=== PATIENT | male | born 1955 | race Caucasian/White ===

== ENCOUNTER 2020-04-09 14:29 | Inpatient (IN) | payer BC ==
[~2020-04-09] VITALS: Ht 190.5 cm; Wt 106.5 kg
[2020-04-09] MEDS ORDERED: FAMOTIDINE 20MG/2ML IV (PEPCID) IVP ONE (15:45)
[2020-04-09] MEDS ORDERED: PANTOPRAZOLE 40 MG (PROTONIX) VIAL IV ONE (15:45)
[2020-04-09 16:03] LABS: BASOPHILS # (AUTO) 0.1 10^3/uL (0.0-0.1); BASOPHILS % (AUTO) 1 % (0-10); EOSINOPHILS # (AUTO) 0.1 10^3/uL (0.0-0.3); EOSINOPHILS % (AUTO) 2 % (0-10); HEMATOCRIT 43 % (40-54); HEMOGLOBIN 14.7 g/dL (13.3-17.7); LYMPHOCYTES # (AUTO) 1.1 10^3/uL (1.0-4.0); LYMPHOCYTES % (AUTO) 18 % (12-44); MEAN CORPUSCULAR HEMOGLOBIN 32 pg (25-34); MEAN CORPUSCULAR HGB CONC 35 g/dL (32-36); MEAN CORPUSCULAR VOLUME 92 fL (80-99); MEAN PLATELET VOLUME 10.7 fL (9.0-12.2); MONOCYTES # (AUTO) 0.5 10^3/uL (0.0-1.0); MONOCYTES % (AUTO) 8 % (0-12); NEUTROPHILS # (AUTO) 4.3 10^3/uL (1.8-7.8); NEUTROPHILS % (AUTO) 71 % (42-75); PLATELET COUNT 240 10^3/uL (130-400); WHITE BLOOD COUNT 6.1 10^3/uL (4.3-11.0)
[2020-04-09 16:09] LABS: ALBUMIN 4.5 GM/DL (3.2-4.5); PROTHROMBIN TIME PATIENT 13.3 SEC (12.2-14.7)
[2020-04-09 16:10] LABS: CHLORIDE 107 MMOL/L (98-107); POTASSIUM 3.6 MMOL/L (3.6-5.0); SODIUM 142 MMOL/L (135-145)
[2020-04-09 16:11] LABS: CALCIUM 9.3 MG/DL (8.5-10.1)
[2020-04-09 16:12] LABS: GLUCOSE 88 MG/DL (70-105); TOTAL PROTEIN 6.9 GM/DL (6.4-8.2)
[2020-04-09 16:13] LABS: CARBON DIOXIDE 23 MMOL/L (21-32)
[2020-04-09 16:14] LABS: BILIRUBIN,TOTAL 0.9 MG/DL (0.1-1.0)
[2020-04-09 16:15] LABS: ALKALINE PHOSPHATASE 43 U/L (40-136)
[2020-04-09 16:16] LABS: CREATININE SERUM 0.83 MG/DL (0.60-1.30); GFR ESTIMATED > 60
[2020-04-09 16:17] LABS: BUN/CREATININE RATIO 19
[2020-04-09 16:18] LABS: ALANINE AMINOTRANSFERASE 34 U/L (0-55)
--- NOTE | 2020-04-09 16:46 | ED General ---
General Chief Complaint: Oral/Throat Problems Stated Complaint: BLEEDING FROM THROAT Nursing Triage Note: PT PRESENTS TO ED WITH COMPLAINTS OF SPITTING UP BLOOD STARTING APROX 2 HOURS AGO. PT REPORTS STARTED HAVING DIFFICULTY SWALLOWING X 1 WEEK AGO AND WAS TREATED TWO WEEKS AGO FOR SINUS AND EAR INFECTION. Nursing Sepsis Screen: No Definite Risk Source of Information: Patient Exam Limitations: No Limitations History of Present Illness Date Seen by Provider: Apr 09, 2020 Time Seen by Provider: 15:38 Initial Comments This 64-year-old gentleman presents to the emergency room with complaints of spitting up blood today. He noticed difficulty swallowing starting about 2 weeks ago. 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 He denies any pain. He notes that pills and capsules have frequently been getting stuck in his esophagus over the past couple weeks. He has not taking any blood thinning medications. Allergies and Home Medications Allergies Coded Allergies: almond (Verified Allergy, Unknown, 04/09/20) amoxicillin (Verified Allergy, Unknown, 04/09/20) tree nut (Verified Allergy, Unknown, 04/09/20) Home Medications Aspirin/Acetaminophen/Caffeine 1 Each Tablet, 2 EACH PO Q6-8HR PRN for Headache, (Reported) Cetirizine HCl 10 Mg Tablet, 10 MG PO HS PRN for ALLERGY SYMPTOMS, (Reported) Diphenhydramine HCl 25 Mg Capsule, 25-50 MG PO Q6H PRN for ALLERGY SYMPTOMS, (Reported) Ibuprofen 200 Mg Tablet, 400 MG PO Q8H PRN for PAIN-MILD (1-4), (Reported) Levothyroxine Sodium 25 Mcg Tablet, 25 MCG PO DAILY, (Reported) Lisinopril/Hydrochlorothiazide 1 Each Tablet, 1 EA PO DAILY, (Reported) Loratadine 10 Mg Tablet, 10 MG PO DAILY PRN for ALLERGY SYMPTOMS, (Reported) Multivitamin 1 Each Tablet, 1 EACH PO DAILY, (Reported) Naproxen Sodium 220 Mg Capsule, 220 MG PO Q8H PRN for PAIN-MILD (1-4), (Reported) Patient Home Medication List Home Medication List Reviewed: Yes Review of Systems Review of Systems Constitutional: no symptoms reported EENTM: see HPI Respiratory: no symptoms reported Cardiovascular: other (Hypertensive) Gastrointestinal: see HPI Genitourinary: no symptoms reported Musculoskeletal: no symptoms reported Skin: no symptoms reported Psychiatric/Neurological: No Symptoms Reported Hematologic/Lymphatic: No Symptoms Reported Immunological/Allergic: no symptoms reported Past Oevaoni-Qbkmwm-Frlgtb Hx Past Med/Social Hx: Reviewed Nursing Past Med/Soc Hx Patient Social History Alcohol Use: Denies Use Recreational Drug Use: No Smoking Status: Never a Smoker Recent Foreign Travel: No Contact w/Someone Who Travel: No Recent Infectious Disease Expo: No Recent Hopitalizations: No Physical Abuse: No Sexual Abuse: No Mistreated: No Fear: No Past Medical History Surgeries: Yes (stromal tumor removed from stomach 2016, dilation of esophageal strictures) Gallbladder, Tonsillectomy Respiratory: No Cardiac: Yes Hypertension Neurological: No Genitourinary: No Gastrointestinal: Yes (Esophageal strictures with dilation x2) Musculoskeletal: No Endocrine: Yes Hypothyroidsim HEENT: No Cancer: No Psychosocial: No Physical Exam Vital Signs Vital Signs - First Documented 04/09/20 04/09/20 04/10/20 15:21 17:44 10:30 Temp 36.6 Pulse 67 Resp 18 B/P (MAP) 187/99 (128) Pulse Ox 96 O2 Delivery Room Air O2 Flow Rate 8 Capillary Refill : Less Than 3 Seconds Height, Weight, BMI Height: '" Weight: lbs. oz. kg; 28.00 BMI Method: General Appearance: No Apparent Distress, WD/WN HEENT: PERRL/EOMI, TMs Normal, Normal ENT Inspection, Pharynx Normal, Other (No evidence of blood in the posterior pharynx) Neck: Normal Inspection, Non Tender, Other (No masses or lymphadenopathy noted) Respiratory: Lungs Clear, Normal Breath Sounds, No Accessory Muscle Use, No Respiratory Distress Cardiovascular: Regular Rate, Rhythm, No Edema, No Murmur Gastrointestinal: Normal Bowel Sounds, Non Tender, Soft Extremity: Normal Inspection, No Pedal Edema Neurologic/Psychiatric: Alert, Oriented x3, No Motor/Sensory Deficits, Normal Mood/Affect, employment program representative II-XII Norm as Tested Skin: Normal Color, Warm/Dry Progress/Results/Core Measures Suspected Sepsis Recent Fever Within 48 Hours: No Infection Criteria Present: None New/Unexplained Altered Menta: No Sepsis Screen: No Definite Risk SIRS Temperature: Pulse: 67 Respiratory Rate: 18 Laboratory Tests 04/09/20 15:40: White Blood Count 6.1 04/10/20 05:58: White Blood Count 4.4 Blood Pressure 187 /99 Mean: 128 Laboratory Tests 04/09/20 15:40: Creatinine 0.83, INR Comment 1.0, Platelet Count 240, Total Bilirubin 0.9 04/10/20 05:58: Creatinine 0.82, Platelet Count 207, Total Bilirubin 1.1H Results/Orders Lab Results Laboratory Tests Test 04/09/20 15:40 04/09/20 21:15 04/10/20 05:58 Range/Units White Blood Count 6.1 4.4 4.3-11.0 10^3/uL Red Blood Count 4.64 4.16 L 4.30-5.52 10^6/uL Hemoglobin 14.7 13.2 L 13.3-17.7 g/dL Hematocrit 43 39 L 40-54 % Mean Corpuscular Volume 92 93 80-99 fL Mean Corpuscular Hemoglobin 32 32 25-34 pg Mean Corpuscular Hemoglobin Concent 35 34 32-36 g/dL Red Cell Distribution Width 12.4 12.3 10.0-14.5 % Platelet Count 240 207 130-400 10^3/uL Mean Platelet Volume 10.7 10.7 9.0-12.2 fL Immature Granulocyte % (Auto) 1 0 % Neutrophils (%) (Auto) 71 58 42-75 % Lymphocytes (%) (Auto) 18 26 12-44 % Monocytes (%) (Auto) 8 12 0-12 % Eosinophils (%) (Auto) 2 3 0-10 % Basophils (%) (Auto) 1 1 0-10 % Neutrophils # (Auto) 4.3 2.5 1.8-7.8 10^3/uL Lymphocytes # (Auto) 1.1 1.2 1.0-4.0 10^3/uL Monocytes # (Auto) 0.5 0.5 0.0-1.0 10^3/uL Eosinophils # (Auto) 0.1 0.2 0.0-0.3 10^3/uL Basophils # (Auto) 0.1 0.1 0.0-0.1 10^3/uL Immature Granulocyte # (Auto) 0.0 0.0 0.0-0.1 10^3/uL Prothrombin Time 13.3 12.2-14.7 SEC INR Comment 1.0 0.8-1.4 Activated Partial Thromboplast Time 29 24-35 SEC Sodium Level 142 140 135-145 MMOL/L Potassium Level 3.6 3.7 3.6-5.0 MMOL/L Chloride Level 107 107 98-107 MMOL/L Carbon Dioxide Level 23 22 21-32 MMOL/L Anion Gap 12 11 5-14 MMOL/L Blood Urea Nitrogen 16 12 7-18 MG/DL Creatinine 0.83 0.82 0.60-1.30 MG/DL Estimat Glomerular Filtration Rate > 60 > 60 BUN/Creatinine Ratio 19 15 Glucose Level 88 93 70-105 MG/DL Calcium Level 9.3 8.0 L 8.5-10.1 MG/DL Corrected Calcium 8.9 8.2 L 8.5-10.1 MG/DL Total Bilirubin 0.9 1.1 H 0.1-1.0 MG/DL Aspartate Amino Transf (AST/SGOT) 30 26 5-34 U/L Alanine Aminotransferase (ALT/SGPT) 34 29 0-55 U/L Alkaline Phosphatase 43 35 L 40-136 U/L Total Protein 6.9 5.5 L 6.4-8.2 GM/DL Albumin 4.5 3.8 3.2-4.5 GM/DL Coronavirus (COVID-19)(PCR) Negative Negative Micro Results Microbiology 04/09/20 MRSA Screen - Final, Complete MRSA not isolated My Orders Orders - LA CHAIREZ MD Cbc With Automated Diff (04/09/20 15:38) Comprehensive Metabolic Panel (04/09/20 15:38) Protime With Inr (04/09/20 15:38) Partial Thromboplastin Time (04/09/20 15:38) Ed Iv/Invasive Line Start (04/09/20 15:38) Famotidine Injection (Pepcid Injection) (04/09/20 15:45) Pantoprazole Injection (Protonix Injecti (04/09/20 15:45) Type And Screen (04/09/20 15:38) Medications Given in ED Vital Signs/I&O Capillary Refill : Less Than 3 Seconds Blood Pressure Mean: 128 Progress Note : Progress Note This gentleman continued to spit up of blood about in decreasing quantities throughout his ER visit. He received Pepcid and Protonix 80 mg by IV route. He was notably hypertensive when he was initially assessed but his blood pressure trended downward to an acceptable level without intervention. Dr. Thomas was consulted and intends to perform endoscopy in the morning. Departure Communication (Admissions) Time/Spoke to Admitting Phy: 16:40 Dr. Muir Time/Spoke to Consulting Phy: 16:30 Dr. Thomas Impression Primary Impression: Upper GI bleed Additional Impression: History of stomach cancer Disposition: ADMITTED INPATIENT Condition: Stable Admissions Decision to Admit Reason: Admit from ER (General) Decision to Admit/Date: Apr 09, 2020 Time/Decision to Admit Time: 16:30 Departure-Patient Inst. Referrals: JE DEL RIO MD (PCP/Family) Primary Care Physician LA CHAIREZ MD Apr 09, 2020 16:46
--- NOTE | 2020-04-09 17:40 | NUR ---
DIONISOI NASH admitted to room 415-1, with an admitting diagnosis of GI bleed, on 04/09/20 from ED via wheelchair, accompanied by staff.DIONISIO NASH introduced to surroundings, call light, bed controls, phone, TV, temperature control, lights, meal times, smoking policy, visitor policy, side rail policy, bathrooms and showers. Patient Rights given to patient in the handbook. DIONISIO NASH verbalizes understanding that [facility] is not responsible for the loss or damage to any personal effects or valuables that are kept in the patients posession during their hospitalization. DIONISIO NASH verbalizes understanding of Interdisciplinary Patient Education. Patient and/or family were informed about the Rapid Response Team and its purpose.
[2020-04-09 17:44] VITALS: BP 202/95
[2020-04-09] MEDS ORDERED: LACTATED RINGERS 1,000 ML IV ONE (18:00)
[2020-04-09] MEDS ORDERED: ONDANSETRON 4 MG/2 ML (SDV) Z0FRAN IVP PRN (18:15)
[2020-04-09] MEDS: LACTATED RINGERS 1,000 ML IV SCH (18:19)
[2020-04-09 18:26] VITALS: BP 191/90
--- NOTE | 2020-04-09 18:48 | NUR ---
Notified MD of elevated blood pressure since admission. patient is currently 191/90 heart rate 62. Patient stated he takes lisinopril and HCTZ but does not remember dosages. patient stated he took medication this AM and is feeling asymptomatic at this time. MD instructed this RN to only monitor blood pressure for now as IV BP medications can cause more harm at times. if patient becomes symptomatic such as pain/ headache notify MD.
--- NOTE | 2020-04-09 19:34 | Consultation - Surgery ---
History of Present Illness History of Present Illness Patient Consulted On(dane/time) 04/09/20 19:28 Time Seen by Provider: 19:04 History of Present Illness Surgery asked to consult regarding hematemesis/hemoptysis and worsening dysphagia. HPI per ED: PT PRESENTS TO ED WITH COMPLAINTS OF SPITTING UP BLOOD STARTING APROX 2 HOURS AGO. PT REPORTS STARTED HAVING DIFFICULTY SWALLOWING X 1 WEEK AGO AND WAS TREATED TWO WEEKS AGO FOR SINUS AND EAR INFECTION. When I spoke to pt he states that he has hx of GI Stromal Tumor, removed by wedge resection laparoscopically in 2016. He states he was told at that time that he could go on a 5 year cycle for EGD's. He states that over the past couple of weeks he has had worsening dysphagia; "dry foods are the worst, but also gel-caps because they are sticky". He has avoided other foods and is trending toward a liquid only diet. He states surgery was not near [facility]; but, he has had Esophageal dilation 2 or 3 times before. He had all of this done in [place] and has been in [facility] 2017. He states he did not need any chemo or radiation after the tumor removal. Pt denies abdominal pain and no SOB. Allergies and Home Medications Allergies Coded Allergies: almond (Verified Allergy, Unknown, 04/09/20) amoxicillin (Verified Allergy, Unknown, 04/09/20) tree nut (Verified Allergy, Unknown, 04/09/20) Patient Home Medication List Home Medication List Reviewed: Yes Past Rqcztmk-Ytdqfi-Wcfkib Hx Patient Social History Alcohol Use: Denies Use Recreational Drug Use: No Smoking Status: Never a Smoker Recent Foreign Travel: No Contact w/Someone Who Travel: No Recent Infectious Disease Expo: No Recent Hopitalizations: No Surgeries History of Surgeries: Yes (stromal tumor removed from stomach, ) Surgeries: Gallbladder, Tonsillectomy Respiratory History of Respiratory Disorde: No Cardiovascular History of Cardiac Disorders: Yes Cardiac Disorders: Hypertension Neurological History of Neurological Disord: No Genitourinary History of Genitourinary Disor: No Gastrointestinal History of Gastrointestinal Di: Yes (history of esophagus stretched x 2) Musculoskeletal History of Musculoskeletal Dis: No Endocrine History of Endocrine Disorders: Yes Endocrine Disorders: Hypothyroidsim HEENT History of HEENT Disorders: No Cancer History of Cancer: No Psychosocial History of Psychiatric Problem: No Family Medical History Significant Family History: Heart Disease (Father and both G'fathers), Diabetes (both G'fathers) Review of Systems-General Constitutional: No chills, No diaphoresis, No malaise, No weakness EENTM: hoarseness, throat pain, throat swelling; No blurred vision, No double vision, No mouth swelling, No epistaxis Respiratory: cough; No dyspnea on exertion, No short of breath Cardiovascular: No chest pain, No edema, No palpitations Gastrointestinal: No abdominal pain; dysphagia, hematemesis, loss of appetite; No nausea; vomiting Genitourinary: No dysuria, No frequency, No hematuria Skin: No change in color, No change in hair/nails Psychiatric/Neurological: Denies Anxiety, Denies Depressed, Denies Seizure, Denies Tremors Physical Exam-General Problems Physical Exam Vital Signs Vital Signs - First Documented 04/09/20 04/09/20 15:21 17:44 Temp 36.6 Pulse 67 Resp 18 B/P (MAP) 187/99 (128) Pulse Ox 96 O2 Delivery Room Air Capillary Refill : Less Than 3 Seconds General Appearance: WD/WN, no apparent distress Eyes: Bilateral Eye PERRL, Bilateral Eye EOMI HEENT: pharynx normal; No scleral icterus (R), No scleral icterus (L) Neck: non-tender, full range of motion, supple Respiratory: chest non-tender, lungs clear, normal breath sounds, no r espiratory distress, no accessory muscle use Cardiovascular: regular rate, rhythm, no murmur Gastrointestinal: non tender, soft, no organomegaly, no pulsatile mass Back: no CVA tenderness, no vertebral tenderness Extremities: no pedal edema, no calf tenderness, normal capillary refill Neurologic/Psychiatric: obiee obia solution architect II-XII nml as tested, no motor/sensory deficits, alert, normal mood/affect, oriented x 3 Skin: normal color, warm/dry Lymphatic: no adenopathy (neck, axilla or groin) Data Review Labs Laboratory Tests 04/09/20 15:40: White Blood Count 6.1, Red Blood Count 4.64, Hemoglobin 14.7, Hematocrit 43, Mean Corpuscular Volume 92, Mean Corpuscular Hemoglobin 32, Mean Corpuscular Hemoglobin Concent 35, Red Cell Distribution Width 12.4, Platelet Count 240, Mean Platelet Volume 10.7, Immature Granulocyte % (Auto) 1, Neutrophils (%) (Auto) 71, Lymphocytes (%) (Auto) 18, Monocytes (%) (Auto) 8, Eosinophils (%) (Auto) 2, Basophils (%) (Auto) 1, Neutrophils # (Auto) 4.3, Lymphocytes # (Auto) 1.1, Monocytes # (Auto) 0.5, Eosinophils # (Auto) 0.1, Basophils # (Auto) 0.1, Immature Granulocyte # (Auto) 0.0, Prothrombin Time 13.3, INR Comment 1.0, Activated Partial Thromboplast Time 29, Sodium Level 142, Potassium Level 3.6, Chloride Level 107, Carbon Dioxide Level 23, Anion Gap 12, Blood Urea Nitrogen 16, Creatinine 0.83, Estimat Glomerular Filtration Rate > 60, BUN/Creatinine Ratio 19, Glucose Level 88, Calcium Level 9.3, Corrected Calcium 8.9, Total Tae irubin 0.9, Aspartate Amino Transf (AST/SGOT) 30, Alanine Aminotransferase (ALT/SGPT) 34, Alkaline Phosphatase 43, Total Protein 6.9, Albumin 4.5 Assessment/Plan Assessment/Plan Assessment/Plan Dysphagia - worsening Hematemesis/Hemoptysis Pt has hx of GI stromal tumor, esophageal dilations and Gastritis. Today he "coughed up" and noticed blood and then "tissue on my shirt". He has been having increasing trouble swallowing foods, mainly down low in the esophagus. Pt is admitted to medicine and on a clear liquid diet. He will be made NPO after midnight, plan for EGD in the am and will get consent. He has had multiple EGD's; but we discussed risks and complications not limited to pain, bleeding, infection, scar and even esophageal perforation. All questions answered to his satisfaction; may get biopsy or do dilation of esophagus. Clinical Quality Measures DVT/VTE Risk/Contraindication: Risk Factor Score Per Nursin RFS Level Per Nursing on Admit: 2=Moderate LATA TALBOT DO Apr 09, 2020 19:34
[2020-04-09 19:47] VITALS: BP_SYST 193; BP_SYST 198; BP_DIAS 93; BP_DIAS 95
[2020-04-09] MEDS: PANTOPRAZOLE 40 MG (PROTONIX) VIAL IV SCH (21:13)
[2020-04-09 23:34] VITALS: BP 210/102
--- NOTE | 2020-04-09 23:40 | NUR ---
PT BLOOD PRESSURE 210/102. DR BELLAMY NOTIFIED DR AND ORDER TO FIVE CLONIDINE 0.1 MG PO X1.
[2020-04-10] VITALS (8 sets, daily range): BP systolic 144–176; BP diastolic 70–84
[2020-04-10] MEDS ORDERED: cloNIDine 0.1 MG (CATAPRES) TAB PO ONE
[2020-04-10] MEDS ORDERED: cloNIDine 0.1 MG (CATAPRES) TAB ONE (00:03)
[2020-04-10] MEDS: LACTATED RINGERS 1,000 ML IV SCH ×3 (02:35→12:11)
[2020-04-10 06:13] LABS: BASOPHILS # (AUTO) 0.1 10^3/uL (0.0-0.1); BASOPHILS % (AUTO) 1 % (0-10); EOSINOPHILS # (AUTO) 0.2 10^3/uL (0.0-0.3); EOSINOPHILS % (AUTO) 3 % (0-10); HEMATOCRIT 39 % (40-54); HEMOGLOBIN 13.2 g/dL (13.3-17.7); LYMPHOCYTES # (AUTO) 1.2 10^3/uL (1.0-4.0); LYMPHOCYTES % (AUTO) 26 % (12-44); MEAN CORPUSCULAR HEMOGLOBIN 32 pg (25-34); MEAN CORPUSCULAR HGB CONC 34 g/dL (32-36); MEAN CORPUSCULAR VOLUME 93 fL (80-99); MEAN PLATELET VOLUME 10.7 fL (9.0-12.2); MONOCYTES # (AUTO) 0.5 10^3/uL (0.0-1.0); MONOCYTES % (AUTO) 12 % (0-12); NEUTROPHILS # (AUTO) 2.5 10^3/uL (1.8-7.8); NEUTROPHILS % (AUTO) 58 % (42-75); PLATELET COUNT 207 10^3/uL (130-400); WHITE BLOOD COUNT 4.4 10^3/uL (4.3-11.0)
[2020-04-10 06:24] LABS: ALBUMIN 3.8 GM/DL (3.2-4.5); CHLORIDE 107 MMOL/L (98-107); POTASSIUM 3.7 MMOL/L (3.6-5.0); SODIUM 140 MMOL/L (135-145)
[2020-04-10 06:26] LABS: GLUCOSE 93 MG/DL (70-105); TOTAL PROTEIN 5.5 GM/DL (6.4-8.2)
[2020-04-10 06:27] LABS: CARBON DIOXIDE 22 MMOL/L (21-32)
[2020-04-10 06:28] LABS: BILIRUBIN,TOTAL 1.1 MG/DL (0.1-1.0)
[2020-04-10 06:30] LABS: ALKALINE PHOSPHATASE 35 U/L (40-136); CREATININE SERUM 0.82 MG/DL (0.60-1.30); GFR ESTIMATED > 60
[2020-04-10 06:31] LABS: BUN/CREATININE RATIO 15
[2020-04-10 06:33] LABS: ALANINE AMINOTRANSFERASE 29 U/L (0-55)
[2020-04-10] MEDS ORDERED: FLU QUADRIvalent (3YOA+) 60 mcg/0.5 ml 2020-21 (AFLURIA) IM ONE (07:00)
[2020-04-10] MEDS: PANTOPRAZOLE 40 MG (PROTONIX) VIAL IV SCH (08:10)
--- NOTE | 2020-04-10 08:45 | History & Physical ---
History of Present Illness History of Present Illness Reason for visit/HPI 64 yo male admitted with hemoptysis. Onset yesterday. On further discussion he reports he has been having increasing difficulty swallowing dry foods and pills. He has had multiple EGDs and dilatation of his esophagus previously. He currently works for [employer] and commutes to [place]. 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 History of GI stromal tumor removal. Denies chest pain or trouble breathing. He was treated for a sinus infection a nd left submandibular gland swelling 2 weeks ago- Both have improved but his right ear still feels congested and has a "tug" in it. Blood pressure is elevated during this admission. Date of Admission Apr 09, 2020 at 16:40 Date Seen by a Provider: Apr 10, 2020 Time Seen by a Provider: 08:44 I consulted on this patient on 04/10/20 08:39 Attending Physician Justino Del Rio MD Admitting Physician Justino Del Rio MD Consult Dr. Thomas Allergies and Home Medications Allergies Coded Allergies: almond (Verified Allergy, Unknown, 04/09/20) amoxicillin (Verified Allergy, Unknown, 04/09/20) tree nut (Verified Allergy, Unknown, 04/09/20) Past Mlskgak-Tksorb-Hclcmn Hx Patient Social History Alcohol Use: Denies Use Recreational Drug Use: No Smoking Status: Never a Smoker Recent Foreign Travel: No Contact w/other who traveled: No Recent Hopitalizations: No Recent Infectious Disease Expo: No Surgeries Yes (stromal tumor removed from stomach, ) Gallbladder, Tonsillectomy Respiratory No Cardiovascular Yes Hypertension Neurological No Genitourinary No Gastrointestinal Yes (history of esophagus stretched x 2) Musculoskeletal No Endocrine History of Endocrine Disorders: Yes Endocrine Disorders: Hypothyroidsim HEENT History of HEENT Disorders: No Cancer No Psychosocial History of Psychiatric Problem: No Family Medical History Significant Family History: Heart Disease (Father and both G'fathers), Diabetes (both G'fathers) Review of Systems Review of Systems General: No Chills, No Night Sweats HEENT: No Head Aches Pulmonary: No Dyspnea, No Cough Cardiovascular: No: Chest Pain, Palpitations Gastrointestinal: Other (hemoptysis, dysphagia); No: Nausea, Vomiting, Abdominal Pain Genitourinary: No Dysuria Musculoskeletal: No: neck pain, shoulder pain Neurological: No: Weakness, Confusion Physical Exam Vital Signs Vital Signs - First Documented 04/09/20 04/09/20 15:21 17:44 Temp 36.6 Pulse 67 Resp 18 B/P (MAP) 187/99 (128) Pulse Ox 96 O2 Delivery Room Air Capillary Refill : Less Than 3 SecondsLess Than 3 Seconds Height, Weight, BMI Height: '" Weight: lbs. oz. kg; 29.34 BMI Method: General Appearance: No Apparent Distress HEENT: PERRL/EOMI Neck: Non Tender, Supple Respiratory: Chest Non Tender, Lungs Clear, Normal Breath Sounds, No Accessory Muscle Use, No Respiratory Distress Cardiovascular: Regular Rate, Rhythm Gastrointestinal: Normal Bowel Sounds, Non Tender, Soft Rectal: Deferred Extremity: Non Tender, No Calf Tenderness Neurologic/Psychiatric: Alert, Oriented x3 Skin: Warm/Dry Assessment/Plan Assessment/Plan Assessment and Plan 04/10/20- Dr. Thomas plans to take a look with an EGD. NPO since midnight. Monitor Hgb- Problems: (1) Upper GI bleed (2) HTN (hypertension) Clinical Quality Measures DVT/VTE Risk/Contraindication: Risk Factor Score Per Nursin RFS Level Per Nursing on Admit: 2=Moderate JUSTINO DEL RIO MD Apr 10, 2020 08:45
[2020-04-10] MEDS ORDERED: FAMOTIDINE 20MG/2ML IV (PEPCID) IVP SCH (09:00)
--- NOTE | 2020-04-10 09:40 | NUR ---
TO ENDO PER WC.
[2020-04-10] MEDS ORDERED: LACTATED RINGERS 1,000 ML IV ONE (09:45)
[2020-04-10] MEDS ORDERED: proPOfol 200 MG/20 ML (DIPRIVAN) VIAL IV ONE (10:04)
[2020-04-10] MEDS ORDERED: MIDAZOLAM 2 MG/2 ML (VERSED) VIAL ONE (10:04)
[2020-04-10] MEDS: LACTATED RINGERS 1,000 ML IV ONE ×2 (10:10→10:59)
[2020-04-10] MEDS: HURRICAINE EXT TUBE (BENZOCAINE) XX ONE ×2 (10:11→10:59)
--- NOTE | 2020-04-10 10:15 | Progress Note - Surgery ---
Subjective Time Seen by a Provider: 10:04 Subjective/Events-last exam Pt seen and examined, no new complaints. States he has basically stopped coughing up blood. Review of Systems General: No Chills, No Night Sweats Pulmonary: No Dyspnea Cardiovascular: No: Chest Pain, Palpitations Gastrointestinal: No: Nausea, Vomiting, Abdominal Pain Objective Exam Vital Signs Date Time Temp Pulse Resp B/P (MAP) Pulse Ox O2 Delivery O2 Flow Rate FiO2 04/10/20 08:23 Room Air 04/10/20 08:00 36.3 54 18 172/78 (109) 94 Room Air 04/10/20 06:35 49 04/10/20 04:21 36.4 54 18 144/70 (94) 95 Room Air 04/10/20 01:21 144/77 (99) 04/10/20 01:00 52 04/09/20 23:34 36.7 59 18 210/102 (138) 97 Room Air 04/09/20 20:40 Room Air 04/09/20 19:47 36.5 58 18 193/93 (126) 96 Room Air 04/09/20 19:00 65 04/09/20 18:26 62 191/90 (123) 04/09/20 17:44 36.5 65 18 202/95 98 Room Air 04/09/20 17:19 76 20 172/91 97 04/09/20 15:21 36.6 67 18 187/99 (128) 96 I & O 04/10/20 07:00 Intake Total 460 ml Balance 460 ml Capillary Refill : Less Than 3 SecondsLess Than 3 Seconds General Appearance: No Apparent Distress, WD/WN HEENT: PERRL/EOMI Respiratory: Chest Non Tender, Lungs Clear, Normal Breath Sounds, No Accessory Muscle Use, No Respiratory Distress Cardiovascular: Regular Rate, Rhythm, No Murmur Gastrointestinal: non tender, soft, no organomegaly, no pulsatile mass Extremity: Non Tender, No Calf Tenderness Skin: Ecchymosis (on arms) Results Lab Laboratory Tests 04/09/20 15:40: White Blood Count 6.1, Red Blood Count 4.64, Hemoglobin 14.7, Hematocrit 43, Mean Corpuscular Volume 92, Mean Corpuscular Hemoglobin 32, Mean Corpuscular Hemoglobin Concent 35, Red Cell Distribution Width 12.4, Platelet Count 240, Mean Platelet Volume 10.7, Immature Granulocyte % (Auto) 1, Neutrophils (%) (Auto) 71, Lymphocytes (%) (Auto) 18, Monocytes (%) (Auto) 8, Eosinophils (%) (Auto) 2, Basophils (%) (Auto) 1, Neutrophils # (Auto) 4.3, Lymphocytes # (Auto) 1.1, Monocytes # (Auto) 0.5, Eosinophils # (Auto) 0.1, Basophils # (Auto) 0.1, Immature Granulocyte # (Auto) 0.0, Prothrombin Time 13.3, INR Comment 1.0, Activated Partial Thromboplast Time 29, Sodium Level 142, Potassium Level 3.6, Chloride Level 107, Carbon Dioxide Level 23, Anion Gap 12, Blood Urea Nitrogen 16, Creatinine 0.83, Estimat Glomerular Filtration Rate > 60, BUN/Creatinine Ratio 19, Glucose Level 88, Calcium Level 9.3, Corrected Calcium 8.9, Total Bilirubin 0.9, Aspartate Amino Transf (AST/SGOT) 30, Alanine Aminotransferase (ALT/SGPT) 34, Alkaline Phosphatase 43, Total Protein 6.9, Albumin 4.5 04/09/20 21:15: 04/10/20 05:58: White Blood Count 4.4, Red Blood Count 4.16L, Hemoglobin 13.2L, Hematocrit 39L, Mean Corpuscular Volume 93, Mean Corpuscular Hemoglobin 32, Mean Corpuscular Hemoglobin Concent 34, Red Cell Distribution Width 12.3, Platelet Count 207, Mean Platelet Volume 10.7, Immature Granulocyte % (Auto) 0, Neutrophils (%) (Auto) 58, Lymphocytes (%) (Auto) 26, Monocytes (%) (Auto) 12, Eosinophils (%) (Auto) 3, Basophils (%) (Auto) 1, Neutrophils # (Auto) 2.5, Lymphocytes # (Auto) 1.2, Monocytes # (Auto) 0.5, Eosinophils # (Auto) 0.2, Basophils # (Auto) 0.1, Immature Granulocyte # (Auto) 0.0, Sodium Level 140, Potassium Level 3.7, Chloride Level 107, Carbon Dioxide Level 22, Anion Gap 11, Blood Urea Nitrogen 12, Creatinine 0.82, Estimat Glomerular Filtration Rate > 60, BUN/Creatinine Ratio 15, Glucose Level 93, Calcium Level 8.0L, Corrected Calcium 8.2L, Total Bilirubin 1.1H, Aspartate Amino Transf (AST/SGOT) 26, Alanine Aminotransferase (ALT/SGPT) 29, Alkaline Phosphatase 35L, Total Protein 5.5L, Albumin 3.8 Assessment/Plan Assessment/Plan Assessment/Plan Dysphagia Hematemesis/Hemoptysis Plan for EGD today with possible biopsy and possible esophageal dilation. Pt had no questions. Clinical Quality Measures DVT/VTE Risk/Contraindication: Risk Factor Score Per Nursin RFS Level Per Nursing on Admit: 2=Moderate LATA TALBOT DO Apr 10, 2020 10:15
[2020-04-10] MEDS ORDERED: HURRICAINE EXT TUBE (BENZOCAINE) ONE (10:19)
--- NOTE | 2020-04-10 10:41 | Progress Note-Post Operative ---
Post-Operative Progess Note Surgeon (s)/Well Shooter (s) Surgeon LATA TALBOT DO Well Shooter: none Pre-Operative Diagnosis Dysphagia, Hemoptysis Post-Operative Diagnosis Gastritis Valecular mass esophageal polyps Procedure & Operative Findings Date of Procedure 04/10/20 Procedure Performed/Findings EGD with bx Anesthesia Type IV sedation by Anesthesia Estimated Blood Loss Estimated blood loss (mL): minimal Specimens/Packing Specimens Removed Antral bx GE jxn bx Esophageal bx Valecular mass bx LATA TALBOT DO Apr 10, 2020 10:41
--- NOTE | 2020-04-10 10:55 | NUR ---
RETURNED PER WC FROM ENDO. AWAITING ORDER FOR DIET.
--- NOTE | 2020-04-10 12:04 | Anesthesia-General Post-Op ---
MAC Patient Condition Mental Status/LOC: Same as Preop Cardiovascular: Satisfactory Nausea/Vomiting: Absent Respiratory: Satisfactory Pain: Controlled Complications: Absent Post Op Complications Complications None Follow Up Care/Instructions Patient Instructions None needed. Anesthesiology Discharge Order Discharge Order Patient is doing well, no complaints, stable vital signs, no apparent adverse anesthesia problems. GIANNI CULLEN DO Apr 10, 2020 12:04
[2020-04-10] MEDS ORDERED: LORA10TA7 PO (12:33)
[2020-04-10] MEDS ORDERED: ASPI-789 PO (12:33)
[2020-04-10] MEDS ORDERED: LEVO25TA5 PO (12:33)
[2020-04-10] MEDS ORDERED: IBUP-2473 PO (12:33)
[2020-04-10] MEDS ORDERED: NAPR220C11 PO (12:33)
[2020-04-10] MEDS ORDERED: DIPH25CA79 PO (12:33)
[2020-04-10] MEDS ORDERED: LISI1TAB46 PO (12:33)
[2020-04-10] MEDS ORDERED: MULT-1136 PO (12:33)
[2020-04-10] MEDS ORDERED: CETI10TA17 PO (12:33)
--- NOTE | 2020-04-10 12:34 | NUR ---
SPOKE WITH THE PT AND WENT THRU THE EXT MED HISTORY TO COMPLETE THE MED REC PT WAS ABLE TO NAME HIS MEDICATIONS WELL WHEN/HOW HE TAKES EACH OTC MEDS: CETIRIZINE LORATADINE BENADRYL MTV IBUPROFEN NAPROXEN EXCEDRIN
--- NOTE | 2020-04-10 17:02 | NUR ---
RX AND INST AND VERBALIZED DC ORDERS. DC'D PER WC WITH STAFF.
--- NOTE | 2020-04-11 15:13 | OPERATIVE REPORT ---
DATE OF SERVICE: 04/10/2020 PREOPERATIVE DIAGNOSES: Dysphagia and hemoptysis hematemesis. POSTOPERATIVE DIAGNOSES: Dysphagia, hematemesis and vallecular mass. PROCEDURE PERFORMED: EGD with biopsy. SURGEON: Qasim Thomas DO. SAFETY ANALYST: None. ANESTHESIA: IV sedation by the anesthesiologist. SPECIMEN: Biopsy from the antrum, biopsy from the GE junction, biopsy of the esophagus as well as biopsy of a vallecular mass. INDICATION FOR PROCEDURE: The patient is a 64-year-old male, who came in with complaint of increasing dysphagia and he had some bleeding when he was coughing up. He has a history of a GI stromal tumor and had a previous dilation of the esophagus in the past. FINDINGS: The patient had a vallecular mass as well as some spots in the esophagus. Very mild gastritis. PROCEDURE NOTE: After informed consent was obtained, the patient was brought to the endoscopy suite and placed in the bed in a left lateral decubitus position. He was administered IV sedation by the anesthesiologist, who then monitored his vitals the entire time, heart rate, blood pressure and pulse ox and the scope was inserted, going into the mouth and then back towards the esophagus, noted a mass just behind the vallecula, took a picture of this, pushed past this into the esophagus, in the esophagus, saw almost what looked like little polyps, picture was taken, the GE junction looked fine, took a picture, then pushed into the stomach, some mild inflammation at the antrum, took a picture of this, pushing the duodenum. Duodenum looked fine, took a picture. Pulled back, maybe a small hiatal hernia, elected to take a biopsy of the antrum as well as body of stomach, GE junction and then suctioned the air out of the stomach and then pulled the scope up the esophagus, did a biopsy in the esophagus and then up in the posterior oropharynx, did a biopsy of this vallecular mass. There was some mild bleeding from this. The patient tolerated the procedure and recovered in the endoscopy suite. Job ID: [id number] DocumentID: [id number] Dictated Date: 04/11/2020 10:10:10 Manager Integrated Date: 04/11/2020 15:13:00 Dictated By: QASIM THOMAS DO
== END 2020-04-10 17:05 | disposition home or self-care (01) | DRG 379 ==
LOC: ER 14:31 → 4TH 16:40
PROVIDERS: ADMIT Family Medicine; ATTEND Family Medicine
PROC: 0DB68ZX Excision of Stomach, Via Natural or Artificial Opening Endoscopic, Diagnostic (ICD-10-PCS; 2020-04-10)
PROC: 0DB48ZX Excision of Esophagogastric Junction, Via Natural or Artificial Opening Endoscopic, Diagnostic (ICD-10-PCS; 2020-04-10)
PROC: 0DB58ZX Excision of Esophagus, Via Natural or Artificial Opening Endoscopic, Diagnostic (ICD-10-PCS; 2020-04-10)
PROC: 0CBM8ZX Excision of Pharynx, Via Natural or Artificial Opening Endoscopic, Diagnostic (ICD-10-PCS; 2020-04-10)
PROC: 0DB78ZX Excision of Stomach, Pylorus, Via Natural or Artificial Opening Endoscopic, Diagnostic (ICD-10-PCS; principal; 2020-04-10 10:10)
DX: K29.71 Gastritis, unspecified, with bleeding (principal); R13.10 Dysphagia, unspecified; J39.2 Other diseases of pharynx; K22.8 Other specified diseases of esophagus; Z85.028 Personal history of other malignant neoplasm of stomach; Z20.828 Contact with and (suspected) exposure to other viral communicable diseases; I10 Essential (primary) hypertension; E03.9 Hypothyroidism, unspecified; Z90.89 Acquired absence of other organs
CPT/HCPCS: 36415; 80053; 85025; 85610; 85730; 86850; 86900; 86901; 86920; 87081; 87635

== ENCOUNTER 2020-04-25 05:42 | Outpatient (RCR) | payer BC ==
[~2020-04-25] VITALS: Ht 190 cm; Wt 106.5 kg
[~2020-04-25 05:42] MED LIST changes: -AMLO-251 PO; -CATHETER FLUSH 10 ML SYR IV PRN; -HOLD METFORMIN - RECEIVED CONTRAST 20 ML VIAL IV SCH; -HYDR15SO8 PO; -IOHEXOL 350 MG/ML 100 ML (OMNIPAQUE 350) VIAL IV ONE; -L.AC1CAP6 PO; -LIDO20SO23 MM; -NS 100 ML (IVPB) BAG IV ONE
[2020-04-25] MEDS ORDERED: L.AC1CAP6 PO (09:55)
[2020-04-25] MEDS ORDERED: AMLO-251 PO (09:55)
[2020-04-25 09:59] VITALS: BP 148/86
== END 2020-04-25 11:31 | disposition home or self-care (01) ==
LOC: PREOP 05:42
PROVIDERS: ATTEND Otolaryngology Otolaryngology/Facial Plastic Surgery
DX: Z01.812 Encounter for preprocedural laboratory examination (principal); Z01.810 Encounter for preprocedural cardiovascular examination; R22.0 Localized swelling, mass and lump, head; Z20.828 Contact with and (suspected) exposure to other viral communicable diseases
CPT/HCPCS: 87081; U0002; 87635; 93005

== ENCOUNTER → 2020-04-25 | Outpatient (CLI) | payer BC ==
[~2020-04-25] MED LIST: AMLO-251 PO; ASPI-789 PO; CATHETER FLUSH 10 ML SYR IV PRN; CETI10TA17 PO; DIPH25CA79 PO; HOLD METFORMIN - RECEIVED CONTRAST 20 ML VIAL IV SCH; HYDR15SO8 PO; IBUP-2473 PO; IOHEXOL 350 MG/ML 100 ML (OMNIPAQUE 350) VIAL IV ONE; L.AC1CAP6 PO; LEVO25TA5 PO; LIDO20SO23 MM; LISI1TAB46 PO; LORA10TA7 PO; MULT-1136 PO; NAPR220C11 PO; NS 100 ML (IVPB) BAG IV ONE
[2020-04-25 08:53] LABS: BUN/CREATININE RATIO 15; CREATININE SERUM 0.89 MG/DL (0.60-1.30); GFR ESTIMATED > 60
[2020-04-25 09:53] LABS: BASOPHILS # (AUTO) 0.1 10^3/uL (0.0-0.1); BASOPHILS % (AUTO) 1 % (0-10); EOSINOPHILS # (AUTO) 0.2 10^3/uL (0.0-0.3); EOSINOPHILS % (AUTO) 4 % (0-10); HEMATOCRIT 44 % (40-54); HEMOGLOBIN 15.2 g/dL (13.3-17.7); LYMPHOCYTES % (AUTO) 19 % (12-44); MEAN CORPUSCULAR HEMOGLOBIN 31 pg (25-34); MEAN CORPUSCULAR HGB CONC 35 g/dL (32-36); MEAN CORPUSCULAR VOLUME 90 fL (80-99); MONOCYTES # (AUTO) 0.5 10^3/uL (0.0-1.0); MONOCYTES % (AUTO) 9 % (0-12); NEUTROPHILS # (AUTO) 3.6 10^3/uL (1.8-7.8); NEUTROPHILS % (AUTO) 67 % (42-75); PLATELET COUNT 256 10^3/uL (130-400); WHITE BLOOD COUNT 5.4 10^3/uL (4.3-11.0)
[2020-04-25 10:08] LABS: ALANINE AMINOTRANSFERASE 41 U/L (0-55); ALBUMIN 4.7 GM/DL (3.2-4.5); ALKALINE PHOSPHATASE 46 U/L (40-136); BUN/CREATININE RATIO 14; CALCIUM 9.4 MG/DL (8.5-10.1); CARBON DIOXIDE 25 MMOL/L (21-32); CHLORIDE 108 MMOL/L (98-107); CREATININE SERUM 0.91 MG/DL (0.60-1.30); GFR ESTIMATED > 60; GLUCOSE 96 MG/DL (70-105); POTASSIUM 3.7 MMOL/L (3.6-5.0); SODIUM 141 MMOL/L (135-145); TOTAL PROTEIN 7.4 GM/DL (6.4-8.2)
--- NOTE | 2020-04-25 10:32 | Diagnostic Imaging Report ---
EXAM: CT NECK/CHEST W INDICATION: Difficulty swallowing. Mass in throat. COMPARISON: None. FINDINGS: CT NECK: Ill-defined mass at the base of tongue extending into the vallecula measures approximately 3.5 x 3.0 x 3.5 cm (LR x AP x SI). There are multiple enlarged bilateral necrotic level 2 and 3 cervical lymph nodes, the largest on the left measuring 2.0 cm in short axis dimension. The thyroid and major salivary glands are unremarkable. No retropharyngeal fluid or mass. The cervical carotid and vertebral arteries are grossly patent. 1.8 x 1.7 cm heterogeneously enhancing nodule in the right lobe of the thyroid is indeterminate. Mild spondylotic changes are greatest at C5-C6. No acute osseous findings. The visualized intracranial contents are unremarkable. Mild mucosal thickening in the floor of the right maxillary sinus. Skull base is intact. Lung apices are clear. CT CHEST: 0.3 cm solid pulmonary nodule in the right upper lobe. 0.2 cm solid pulmonary nodule in the right middle lobe anteriorly. 0.5 cm solid pulmonary nodule in the right middle lobe. Mild bibasilar atelectasis. No pleural effusion or pneumothorax. No mediastinal, hilar or axillary lymphadenopathy. Normal heart size. No pericardial effusion. Normal caliber thoracic aorta. There are a few low-attenuation indeterminate lesions in the partially visualized liver, the largest of which measures up to 2.3 cm. Cholecystectomy. No acute osseous findings. No suspicious osteoblastic or lytic lesions. IMPRESSION: 1. Ill-defined mass involving the base of the tongue extending into the floor of the mouth and vallecula measures up to 3.5 cm. 2. Multiple enlarged necrotic appearing bilateral level 2 and 3 cervical lymph nodes suspicious for metastatic disease. 3. Indeterminate solid pulmonary nodules in the right upper lobe and right middle lobe, the largest measuring 0.5 cm. 4. Multiple low-attenuation lesions in the partially visualized liver are indeterminate. These could represent benign cysts, hemangiomas or metastatic disease. The largest seen is in the left hepatic lobe and measures up to 2.3 cm. 5. Heterogeneously enhancing nodule in the right thyroid measures up to 1.8 cm. This could be further evaluated with dedicated ultrasound. Dictated by: Dictated on workstation # [id number]
== END ==
LOC: RAD 09:45
PROVIDERS: ATTEND Otolaryngology Otolaryngology/Facial Plastic Surgery
DX: C01 Malignant neoplasm of base of tongue (principal); E04.1 Nontoxic single thyroid nodule; K76.9 Liver disease, unspecified; R91.8 Other nonspecific abnormal finding of lung field
CPT/HCPCS: 36415; 70491; 71260; 80053; 82565; 84520; 85025

== ENCOUNTER 2020-04-27 08:20 | Day surgery (SDC) | payer BC ==
[~2020-04-27] VITALS: Ht 190 cm; Wt 106.0 kg
[2020-04-27] VITALS (9 sets, daily range): BP systolic 112–145; BP diastolic 66–82
[~2020-04-27 08:20] MED LIST changes: +AMLO-251 PO; +L.AC1CAP6 PO
[2020-04-27] MEDS ORDERED: LACTATED RINGERS 1,000 ML IV PRN (08:45)
[2020-04-27] MEDS ORDERED: fentaNYL INJECTION 100 MCG/2 ML AMP ONE (10:57)
[2020-04-27] MEDS ORDERED: MIDAZOLAM 2 MG/2 ML (VERSED) VIAL ONE (10:59)
[2020-04-27] MEDS ORDERED: SEVOFLURANE (ULTANE) 15 ML INHAL SOLN ONE ×4 (11:19→12:02)
[2020-04-27] MEDS ORDERED: LIDOCAINE PF 2% 5 ML (XYLOCAINE) VIAL ONE (11:20)
[2020-04-27] MEDS ORDERED: proPOfol 200 MG/20 ML (DIPRIVAN) VIAL IV ONE (11:20)
[2020-04-27] MEDS ORDERED: SUCCINYLCHOLINE INJ 100 MG/5 ML SYR/VIAL ONE (11:21)
--- NOTE | 2020-04-27 11:51 | Progress Note-Pre Operative ---
Pre-Operative Progress Note H&P Reviewed The H&P was reviewed, patient examined and no changes noted. Date Seen by Provider: Apr 27, 2020 Time Seen by Provider: 10:45 Date H&P Reviewed: Apr 27, 2020 Time H&P Reviewed: 10:45 Pre-Operative Diagnosis: Base of Tongue mass STEFFEN JOAQUIN MD Apr 27, 2020 11:51
--- NOTE | 2020-04-27 11:52 | Progress Note-Post Operative ---
Post-Operative Progess Note Surgeon (s)/Superintendent System Operation (s) Surgeon STEFFEN JOAQUIN MD Superintendent System Operation n/a Pre-Operative Diagnosis Base of Tongue mass Post-Operative Diagnosis same Post-Op Procedure Note Date of Procedure: Apr 27, 2020 Name of Procedure Performed: Direct Laryngosocy with Biopsies of Base of Tongue Description & Findings Description and Findings: n/a Anesthesia Type get Estimated Blood Loss minimal Packing none. Specimen(s) collected/removed biopsy of base of otngue for frozen section STEFFEN JOAQUIN MD Apr 27, 2020 11:52
[2020-04-27] MEDS ORDERED: PROMETHAZINE INJ 25 MG/ML (PHENERGAN) AMP IV PRN (12:00)
[2020-04-27] MEDS ORDERED: ACETAMINOPHEN 325 MG TABLET PO PRN (12:00)
[2020-04-27] MEDS ORDERED: HYDROcodone/APAP 7.5MG-325 MG/15 ML (LORTAB) UDC PO PRN (12:00)
[2020-04-27] MEDS ORDERED: ONDANSETRON 4 MG/2 ML (SDV) Z0FRAN ONE (12:03)
--- NOTE | 2020-04-27 12:19 | Anesthesia-General Post-Op ---
General Patient Condition Mental Status/LOC: Same as Preop Cardiovascular: Satisfactory Nausea/Vomiting: Absent Respiratory: Satisfactory Pain: Controlled Complications: Absent Post Op Complications Complications None Follow Up Care/Instructions Patient Instructions None needed. Anesthesia/Patient Condition Patient Condition Patient is doing well, no complaints, stable vital signs, no apparent adverse anesthesia problems. No complications reported per nursing. ДМИТРИЙ LEWIS CRNA Apr 27, 2020 12:19
[2020-04-27] MEDS ORDERED: fentaNYL INJECTION 100 MCG/2 ML AMP IVP ONE (12:30)
[2020-04-27] MEDS ORDERED: ONDANSETRON 4 MG/2 ML (SDV) Z0FRAN IVP PRN (12:30)
[2020-04-27] MEDS ORDERED: morphine INJ 10 MG/ML 1ML (SYR OR VIAL) IVP ONE (12:30)
[2020-04-27] MEDS ORDERED: MEPERIDINE (DEMEROL) INJ 50 MG/ML IVP ONE (12:30)
[2020-04-27] MEDS ORDERED: HYDROcodone/APAP 7.5 MG/325 MG (LORTAB, LORCET PLUS) TABLET PO ONE (13:03)
[2020-04-27] MEDS ORDERED: HYDROcodone/APAP 7.5MG-325 MG/15 ML (LORTAB) UDC ONE (13:07)
[2020-04-27] MEDS ORDERED: HYDR15SO8 PO (13:24)
[2020-04-27] MEDS ORDERED: LIDO20SO23 MM (13:24)
== END 2020-04-27 14:05 ==
LOC: SDC 08:20
PROVIDERS: ATTEND Otolaryngology Otolaryngology/Facial Plastic Surgery
DX: C01 Malignant neoplasm of base of tongue (principal); I10 Essential (primary) hypertension; E03.9 Hypothyroidism, unspecified; Z79.899 Other long term (current) drug therapy; Z88.1 Allergy status to other antibiotic agents; Z91.048 Other nonmedicinal substance allergy status; Z91.010 Allergy to peanuts
CPT/HCPCS: 88305; 88331; 88342

== ENCOUNTER → 2020-05-09 | Outpatient (CLI) | payer BC ==
[~2020-05-09] MED LIST changes: +HYDR15SO8 PO; +LIDO20SO23 MM
--- NOTE | 2020-05-09 10:27 | Diagnostic Imaging Report ---
PROCEDURE: US Thyroid. TECHNIQUE: Multiple real-time grayscale images were obtained of the thyroid in various projections. INDICATION: Thyroid nodule. Correlation is made with CT neck study from 04/25/2020. A right lobe thyroid measures 5.4 x 2.4 x 2.2 cm and left lobe measures 5.3 x 1.6 x 1.7 cm. Isthmus is 4 mm in thickness. A mixed echogenicity mass in the upper pole right lobe measures 1.9 x 1.6 x 1.6 cm. 2nd solid nodule lower pole right lobe measures 1.2 x 0.9 x 0.6 cm. Left lobe is unremarkable. There is a hypoechoic solid mass lateral to the thyroid on the right side measuring 3.2 x 1.7 x 2.0 cm likely representing necrotic node noted on recent CT. There are also multiple masses in the left neck corresponding to necrotic lymph nodes noted on recent CT. Largest measures approximate 4.1 x 1.9 x 2.6 cm. IMPRESSION: 1. Right side thyroid nodules, largest upper pole. Tissue sampling could be performed. 2. Bilateral cervical lymphadenopathy, corresponding with lymphadenopathy noted on recent CT neck study in April. Dictated by: Dictated on workstation # [id number]
== END ==
LOC: RAD 09:45
PROVIDERS: ATTEND Otolaryngology Otolaryngology/Facial Plastic Surgery
DX: E04.2 Nontoxic multinodular goiter (principal); R59.1 Generalized enlarged lymph nodes
CPT/HCPCS: 76536

== ENCOUNTER → 2020-05-16 | Outpatient (CLI) | payer BC ==
--- NOTE | 2020-05-16 16:18 | Diagnostic Imaging Report ---
EXAM: PET/CT INDICATION: Squamous cell carcinoma of the tongue. TECHNIQUE: PET/CT imaging was obtained from the base of the skull through the pelvis after the administration of 13.25 mCi of F-18 fluorodeoxyglucose injected into the left antecubital fossa. Limited CT imaging was utilized for localization and attenuation correction purposes. The low energy CT utilized for attenuation correction is not considered to be of high enough spatial resolution to allow in and of itself a separate anatomical analysis. Height: height 6 feet 3 inches Weight: 230 Blood glucose level 94 COMPARISON: There are no prior PET/CT examinations available for comparison. The recent CT neck and chest exam of 04/25/2020 noted an ill-defined 3.0 x 3.5 cm mass involving the base of the tongue. There were also multiple enlarged level 2 and 3 necrotic lymph nodes bilaterally. Those abnormalities are again evident on the CT images of this exam and does not seem to have changed significantly. The mass involving the base of the tongue is hypermetabolic with a maximum SUV of 15.1. The nodes in the neck are also hypermetabolic although a range from a maximum SUV of 8.1 on the left to only 4.4 for the maximum SUV of the left-sided nodes. There is no other hypermetabolic activity within the neck to suggest malignancy. The previous CT chest exam also indicated a few minute pulmonary nodules in the right upper lobe and right middle lobe. The largest of these measure 5 mm. There is no hypermetabolic activity associated with these findings on this exam. Even so, it may prove worthwhile to have a short-term (three-month) follow-up CT chest for further evaluation of these nodules. There is no other hypermetabolic activity to suggest the presence of malignancy. Physiologic activity is seen in the brain, the heart, the bowel, the kidneys and the bladder. The CT images failed to show any sign of an acute abnormality. IMPRESSION: 1. The poorly defined mass involving the base of the bladder and the bilateral cervical lymphadenopathy seen on the recent exam are again noted. These findings are hypermetabolic consistent with neoplastic disease. 2. There is no other hypermetabolic activity to suggest the presence of malignancy. 3. The small nodules in the right lung may well be benign. Recommendations as above. Dictated by: Dictated on workstation # [id number]
== END ==
LOC: RAD 10:16
PROVIDERS: ATTEND Otolaryngology Otolaryngology/Facial Plastic Surgery
DX: C01 Malignant neoplasm of base of tongue (principal); N32.9 Bladder disorder, unspecified; R59.0 Localized enlarged lymph nodes; R91.8 Other nonspecific abnormal finding of lung field
CPT/HCPCS: 78815; A9552

== ENCOUNTER 2020-05-31 05:29 | Outpatient (RCR) | payer BC ==
[~2020-05-31] VITALS: Ht 190.5 cm; Wt 106.2 kg
== END 2020-05-31 10:25 | disposition home or self-care (01) ==
LOC: PREOP 05:29
PROVIDERS: ATTEND Surgery
DX: Z01.812 Encounter for preprocedural laboratory examination (principal); C01 Malignant neoplasm of base of tongue; Z20.822 Contact with and (suspected) exposure to COVID-19
CPT/HCPCS: 87635

== ENCOUNTER 2020-06-02 09:25 | Day surgery (SDC) | payer BC ==
[2020-06-02] VITALS (11 sets, daily range): BP systolic 130–146; BP diastolic 66–98
[~2020-06-02] VITALS: Ht 190.5 cm; Wt 106.2 kg
[2020-06-02] MEDS ORDERED: 0.9% SODIUM CHLORIDE PF INJ 20 ML VIAL ONE (09:35)
[2020-06-02] MEDS ORDERED: LIDOCAINE/EPI 1%-1:100,000 (XYLOCAINE) 50 ML ONE (09:36)
[2020-06-02] MEDS ORDERED: HEParin (CENTRAL IV FLUSH) 500 UNIT/5 ML SYR ONE (09:36)
[2020-06-02] MEDS ORDERED: CLINDAMYCIN 600 MG/50 ML IVPB 50 ML IV ONE (09:45)
[2020-06-02] MEDS: LACTATED RINGERS 1,000 ML IV PRN ×2 (09:59→11:35)
[2020-06-02] MEDS ORDERED: fentaNYL INJECTION 100 MCG/2 ML AMP ONE ×2 (10:05→11:37)
[2020-06-02] MEDS ORDERED: MIDAZOLAM 2 MG/2 ML (VERSED) VIAL ONE (10:06)
--- NOTE | 2020-06-02 10:10 | Progress Note-Pre Operative ---
Pre-Operative Progress Note H&P Reviewed The H&P was reviewed, patient examined and no changes noted. Time Seen by Provider: 10:06 Date H&P Reviewed: Jun 02, 2020 Time H&P Reviewed: 10:07 Pre-Operative Diagnosis: Squamous Cell CA base of tongue, Venous insufficiency LATA TALBOT DO Jun 02, 2020 10:10
[2020-06-02] MEDS ORDERED: ONDANSETRON 4 MG/2 ML (SDV) Z0FRAN IVP PRN (11:15)
[2020-06-02] MEDS ORDERED: morphine INJ 10 MG/ML 1ML (SYR OR VIAL) IVP ONE (11:15)
[2020-06-02] MEDS ORDERED: MEPERIDINE (DEMEROL) INJ 50 MG/ML IVP ONE (11:15)
[2020-06-02] MEDS ORDERED: fentaNYL INJECTION 100 MCG/2 ML AMP IVP ONE (11:15)
[2020-06-02] MEDS ORDERED: proPOfol 200 MG/20 ML (DIPRIVAN) VIAL IV ONE (11:27)
[2020-06-02] MEDS ORDERED: LIDOCAINE PF 2% 5 ML (XYLOCAINE) VIAL ONE (11:27)
[2020-06-02] MEDS ORDERED: ONDANSETRON 4 MG/2 ML (SDV) Z0FRAN ONE (11:27)
[2020-06-02] MEDS ORDERED: ROCURONIUM 10 MG/ML 5 ML SYRINGE IV ONE (11:27)
[2020-06-02] MEDS ORDERED: GLYCOPYRROLATE 0.2 MG/ML (ROBINUL) 2 ML VIAL ONE (11:27)
[2020-06-02] MEDS ORDERED: NEOSTIGMINE 3 MG/3 ML VIAL ONE (11:27)
[2020-06-02] MEDS ORDERED: SEVOFLURANE (ULTANE) 15 ML INHAL SOLN ONE ×2 (11:28→11:43)
--- NOTE | 2020-06-02 11:29 | Progress Note-Post Operative ---
Post-Operative Progess Note Surgeon (s)/Family Living Educator (s) Surgeon LATA TALBOT DO Family Living Educator: Lizeth Roman Pre-Operative Diagnosis Squamous Cell CA base of tongue, Venous insufficiency Post-Operative Diagnosis same Procedure & Operative Findings Date of Procedure 06/02/20 Procedure Performed/Findings PROCEDURE: [Right] subclavian vein port placement using ultrasound guidance. COMPLICATIONS: None. INDICATIONS: The patient is a 64 year old male [with Squamous cell CA of the tongue]. Patient understands the risks and benefits of port placement and wished to proceed with the procedure. Consent was signed on the chart. PROCEDURE: The patient was taken to the operating suite, was prepped and draped in the sterile fashion. A surgical pause was performed. Local anesthetic was infiltrated on the right anterior chest wall and towards the right clavicle. Using an 18 gauge finder needle with negative inspiration the right subclavian vein was accessed. Dark nonpulsatile blood was withdrawn. The wire was inserted and secured. Fluoroscopy assured proper placement. The needle was removed. Local anesthetic had already been used for pocket creation. A [#11] blade scalpel was used to make an incision over the [right] chest. Cautery was used to dissect down to the pectoral fascia. A pocket was created with blunt dissection. The dilator sheath was then advanced over the wire under fluoroscopy and the dilator and wire were removed. The Groshong catheter was inserted through the sheath and the sheath was then removed. The Groshong wire was removed. The catheter was then tunneled to the right chest pocket. Fluoroscopy was used to cut to length and this was then attached to the port which was then placed within the pocket. The port was then accessed without difficulty. It was then flushed with saline and then heparin. The subcutaneous tissues were then reapproximated using 3-0 Vicryl. The areas were then washed and dried. Skin Affix was placed over incision. The insertion point of the neck Skin Affix was placed over the incision. The patient tolerated the procedure well without complication and was taken to recovery room in stable condition. Anesthesia Type GET Estimated Blood Loss Estimated blood loss (mL): minimal Specimens/Packing Specimens Removed none LATA TALBOT DO Jun 02, 2020 11:29
--- NOTE | 2020-06-02 11:52 | Progress Note-Post Operative ---
Post-Operative Progess Note Surgeon (s)/Face Boss (s) Surgeon LATA TALBOT DO Face Boss: Jayleen Pre-Operative Diagnosis Squamous Cell CA base of tongue, Dysphagia Post-Operative Diagnosis same Procedure & Operative Findings Date of Procedure 06/02/20 Procedure Performed/Findings PEG tube placement Anesthesia Type GET Estimated Blood Loss Estimated blood loss (mL): scant Specimens/Packing Specimens Removed none LATA TALBOT DO Jun 02, 2020 11:52
[2020-06-02] MEDS ORDERED: ACHD5005 PO (11:53)
--- NOTE | 2020-06-02 11:54 | Discharge Inst-Surgical ---
Discharge Inst-Surgical Depart Medication/Instructions New, Converted or Re-Newed RX: RX Given to Pt/Family Patient Instructions Follow up Appt: Make appointment for 1 week. [phone] Instructions: No lifting greater than 20 pounds. No strenuous activity. May shower in 24 hours, no tub bath or soaking. Use incentive spirometer at home as directed. No Smoking Skin/Wound Care: May remove bandages in am. You need to leave the Dermabond on incision it will fall off on it's own. Symptoms to Report: Appetite Changes, Extremity Discoloration, Numbness/Tingling, Swelling Increased, Bleeding Excessive, Eyesight Changes, Pain Increased, Urine Color Change, Constipation(Persistent), Fever over 101 degree F, Pain/Pressure in chest, Urinating Difficulty, Cough Up/Vomit Blood, Heart Beat Irreg/Pounding, Pain/Pressure in jaw, Cramps in feet or legs, Lightheadedness, Pain/Pressure in shoulder, Diarrhea(Persistent), Memory Changes Suddenly, Questions/Concerns, Weight gain consecutive days, Dizziness/Fainting, Nausea/Vomiting, Shortness of Breath, Weight gain over 2 pounds If questions or concerns contact your physician Or seek help at emergency department. Activity Activity Instructions: Avoid Stress to Incision Driving Instructions: No Driving/Refer to Dr. Salcido Discharge Diet: No Restrictions Diet After 24 Hours: Clear Liquid if Nauseous If Any Problems/Questions/Issu: Contact Your Physician, Go to Emergency Room Skin/Wound Care Infection Signs and Symptoms: Increased Redness, Foul Odor of Wound, Increased Drainage, Skin Itchy or Has a Rash, Increased Swelling, Temperature Above 101 F Bathing Instructions: Shower Stitches/Carlitos/Dermabond Dis: LATA Perkins DO Jun 02, 2020 11:54
--- NOTE | 2020-06-02 12:58 | Diagnostic Imaging Report ---
INDICATION: Port-A-Cath placement Intraoperative fluoroscopy view obtained during Port-A-Cath placement in surgery. A single view was obtained. Three seconds of fluoroscopy time was used. ET tube tip overlies mid trachea. Port-A-Cath is seen over the right chest with catheter entering the expected location of the right subclavian vein with catheter tip overlying the distal SVC. The study is otherwise limited. IMPRESSION: Intraoperative view demonstrates Port-A-Cath placement as above. Dictated by: Dictated on workstation # [id number]
[2020-06-02] MEDS ORDERED: HYDR15SO8 PO (13:02)
[2020-06-02] MEDS ORDERED: HYDROcodone/APAP 7.5MG-325 MG/15 ML (LORTAB) UDC ONE (13:12)
[2020-06-02] MEDS ORDERED: HYDROcodone/APAP 7.5MG-325 MG/15 ML (LORTAB) UDC PO ONE (13:15)
--- NOTE | 2020-06-02 13:41 | Anesthesia-General Post-Op ---
General Patient Condition Mental Status/LOC: Same as Preop Cardiovascular: Satisfactory Nausea/Vomiting: Absent Respiratory: Satisfactory Pain: Controlled Complications: Absent Post Op Complications Complications None Follow Up Care/Instructions Patient Instructions None needed. Anesthesia/Patient Condition Patient Condition Patient is doing well, no complaints, stable vital signs, no apparent adverse anesthesia problems. No complications reported per nursing. HUNTER SHEARER CRNA Jun 02, 2020 13:41
--- NOTE | 2020-06-02 19:19 | OPERATIVE REPORT ---
DATE OF SERVICE: 06/02/2020 PREOPERATIVE DIAGNOSES: 1. Squamous cell carcinoma of the base of the tongue. 2. Dysphagia. POSTOPERATIVE DIAGNOSES: 1. Squamous cell carcinoma of the base of the tongue. 2. Dysphagia. PROCEDURE: PEG tube placement. SURGEON: Qasim Thomas DO. CO-SURGEON: Joey Clemens DO ANESTHESIA: General endotracheal tube. SPECIMENS: None. BLOOD LOSS: Scant. FLUIDS: Per anesthesia. POSTOPERATIVE CONDITION: Stable. INDICATION FOR PROCEDURE: The patient is a 64-year-old male who unfortunately has a squamous cell carcinoma of the base of the tongue and he is going to be getting chemotherapy and radiation and he is already having some dysphagia and will most likely need to get enteral nutrition through tube instead of that he will not be able to swallow it. FINDINGS: The patient had a PEG tube placed. PROCEDURE NOTE: After informed consent was obtained, the patient was already in the operating room where he had a port placed. Dr. Clemens performed the EGD portion of the procedure. Once he had gotten down into the stomach and insufflated. I was then able to visualize the light, but it was very difficult right at the upper portion of the stomach. I then sterilely prepped and draped the area. Local lidocaine was used to infiltrate the skin, made a stab incision with #11 blade. Tried to advance the local lidocaine into the intestine, had a hard time, could not get it, so then advanced the needle, had the angle up a little bit and then able to see this needle come into the stomach. Dr. Clemens was able to grasp the needle and catheter. I then removed the needle, placed a wire through the catheter, he is able to grasp the catheter, pulled it out. We then attached the PEG tube and then I pulled the wire and then pulled the PEG tube down and through the stomach and it was at 6 cm, still able to twist this. I then attached the bolster as well as some povidone dressing and 2x2 dressing to go under this to protect the skin. Cut off the distal portion, attached the clamp and and closed both ends of the catheter. Area was then cleaned and dried. Sterile dressing placed. The patient tolerated the procedure and transferred to recovery room in stable condition. Sponge, instrument and needle count correct at the end of the case. Job ID: [id number] DocumentID: [id number] Dictated Date: 06/02/2020 12:53:48 Cardiovascular Invasive Specialist Date: 06/02/2020 19:19:15 Dictated By: DO KUSUM STANLEY
--- NOTE | 2020-06-03 00:52 | OPERATIVE REPORT ---
DATE OF SERVICE: PREOPERATIVE DIAGNOSES: Squamous cell carcinoma, base of tongue. Dysphagia. POSTOPERATIVE DIAGNOSES: Squamous cell carcinoma, base of tongue. Dysphagia. PROCEDURE: EGD to assist with percutaneous endoscopic gastrostomy tube placement. ANESTHESIA: General. ESTIMATED BLOOD LOSS: None. COMPLICATIONS: None. INDICATIONS: The patient is a 64-year-old male with squamous cell carcinoma base of tongue and dysphagia. The patient was consented for gastrostomy tube placement. Dr. Thomas asked me to perform the EGD. Consent was signed on the chart. DESCRIPTION OF PROCEDURE: The patient was under general anesthetic. Scope was inserted in mouth, noting the mass of the base of the tongue, inserted into esophagus without difficulty and down to the stomach and into the duodenum without difficulty. There were no polyps, masses or ulcerations within the duodenum. Scope was slowly retracted back into the stomach where it was continued to be insufflated. Once the Angiocath needle was inserted into the stomach, a snare was used to grasp the catheter. The wire was inserted and the catheter was released and the wire was grasped. This was then brought out through by withdrawing the scope, all the way to the outside of the mouth. The gastrostomy tube was attached to the wire and the gastrostomy tube was followed back all the way to the mouth, down the esophagus and into the stomach where it was noted to be in place. No other pathology noted. Scope was then slowly retracted back into the esophagus and slowly retracted until completely removed, noting no new pathology. The patient tolerated procedure well without any complications. Please see Dr. Thomas's note for his portion of the procedure. Job ID: [id number] DocumentID: [id number] Dictated Date: 06/02/2020 19:27:28 Supervisor Pyrotechnic Loading Date: 06/03/2020 00:51:23 Dictated By: SAMANTHA HODGSON DO
== END 2020-06-02 14:40 | disposition home or self-care (01) ==
LOC: SDC 09:25
PROVIDERS: ATTEND Surgery
DX: C01 Malignant neoplasm of base of tongue (principal); C77.0 Secondary and unspecified malignant neoplasm of lymph nodes of head, face and neck; K21.9 Gastro-esophageal reflux disease without esophagitis; I10 Essential (primary) hypertension; E03.9 Hypothyroidism, unspecified; I87.2 Venous insufficiency (chronic) (peripheral); Z79.899 Other long term (current) drug therapy; Z88.1 Allergy status to other antibiotic agents; Z91.018 Allergy to other foods; Z91.010 Allergy to peanuts; Z91.048 Other nonmedicinal substance allergy status; Z87.891 Personal history of nicotine dependence; Z92.3 Personal history of irradiation; Z92.21 Personal history of antineoplastic chemotherapy
CPT/HCPCS: 76000; 87081

== ENCOUNTER 2020-08-11 13:00 | Outpatient (RCR) | payer BC ==
[2020-06-12 13:31] LABS: BASOPHILS # (AUTO) 0.1 10^3/uL (0.0-0.1); BASOPHILS % (AUTO) 1 % (0-10); EOSINOPHILS # (AUTO) 0.1 10^3/uL (0.0-0.3); EOSINOPHILS % (AUTO) 1 % (0-10); HEMATOCRIT 41 % (40-54); HEMOGLOBIN 14.4 g/dL (13.3-17.7); LYMPHOCYTES % (AUTO) 10 % (12-44); MEAN CORPUSCULAR HEMOGLOBIN 31 pg (25-34); MEAN CORPUSCULAR HGB CONC 35 g/dL (32-36); MEAN CORPUSCULAR VOLUME 89 fL (80-99); MEAN PLATELET VOLUME 10.5 fL (9.0-12.2); MONOCYTES # (AUTO) 0.8 10^3/uL (0.0-1.0); MONOCYTES % (AUTO) 8 % (0-12); NEUTROPHILS # (AUTO) 7.7 10^3/uL (1.8-7.8); NEUTROPHILS % (AUTO) 80 % (42-75); PLATELET COUNT 324 10^3/uL (130-400); WHITE BLOOD COUNT 9.7 10^3/uL (4.3-11.0)
[2020-06-12 13:56] LABS: ALANINE AMINOTRANSFERASE 32 U/L (0-55); ALBUMIN 4.4 GM/DL (3.2-4.5); ALKALINE PHOSPHATASE 65 U/L (40-136); BILIRUBIN,TOTAL 0.6 MG/DL (0.1-1.0); BUN/CREATININE RATIO 16; CARBON DIOXIDE 23 MMOL/L (21-32); CHLORIDE 106 MMOL/L (98-107); CREATININE SERUM 0.96 MG/DL (0.60-1.30); GFR ESTIMATED > 60; GLUCOSE 110 MG/DL (70-105); MAGNESIUM 2.4 MG/DL (1.6-2.4); POTASSIUM 3.3 MMOL/L (3.6-5.0); SODIUM 142 MMOL/L (135-145); TOTAL PROTEIN 7.4 GM/DL (6.4-8.2)
[2020-06-19 10:07] LABS: BASOPHILS % (AUTO) 1 % (0-10); EOSINOPHILS # (AUTO) 0.2 10^3/uL (0.0-0.3); EOSINOPHILS % (AUTO) 2 % (0-10); HEMATOCRIT 40 % (40-54); LYMPHOCYTES # (AUTO) 0.8 X 10^3 (1.0-4.0); LYMPHOCYTES % (AUTO) 10 % (12-44); MEAN CORPUSCULAR HEMOGLOBIN 31 pg (25-34); MEAN CORPUSCULAR HGB CONC 35 g/dL (32-36); MEAN CORPUSCULAR VOLUME 89 fL (80-99); MEAN PLATELET VOLUME 10.1 fL (9.0-12.2); MONOCYTES # (AUTO) 0.7 X 10^3 (0.0-1.0); MONOCYTES % (AUTO) 10 % (0-12); NEUTROPHILS # (AUTO) 5.9 X 10^3 (1.8-7.8); NEUTROPHILS % (AUTO) 77 % (42-75); PLATELET COUNT 301 10^3/uL (130-400); WHITE BLOOD COUNT 7.6 10^3/uL (4.3-11.0)
[2020-06-19 10:22] LABS: BUN/CREATININE RATIO 18; CARBON DIOXIDE 27 MMOL/L (21-32); CHLORIDE 104 MMOL/L (98-107); CREATININE SERUM 1.01 MG/DL (0.60-1.30); GFR ESTIMATED > 60; GLUCOSE 94 MG/DL (70-105); POTASSIUM 3.7 MMOL/L (3.6-5.0); SODIUM 141 MMOL/L (135-145)
[2020-06-26 09:36] LABS: BASOPHILS # (AUTO) 0.1 10^3/uL (0.0-0.1); BASOPHILS % (AUTO) 1 % (0-10); EOSINOPHILS # (AUTO) 0.1 10^3/uL (0.0-0.3); EOSINOPHILS % (AUTO) 1 % (0-10); HEMATOCRIT 38 % (40-54); HEMOGLOBIN 13.5 g/dL (13.3-17.7); LYMPHOCYTES # (AUTO) 0.4 10^3/uL (1.0-4.0); LYMPHOCYTES % (AUTO) 5 % (12-44); MEAN CORPUSCULAR HEMOGLOBIN 31 pg (25-34); MEAN CORPUSCULAR HGB CONC 35 g/dL (32-36); MEAN CORPUSCULAR VOLUME 89 fL (80-99); MONOCYTES # (AUTO) 0.6 10^3/uL (0.0-1.0); MONOCYTES % (AUTO) 9 % (0-12); NEUTROPHILS # (AUTO) 6.1 10^3/uL (1.8-7.8); NEUTROPHILS % (AUTO) 84 % (42-75); PLATELET COUNT 256 10^3/uL (130-400); WHITE BLOOD COUNT 7.3 10^3/uL (4.3-11.0)
[2020-06-26 09:56] LABS: ALANINE AMINOTRANSFERASE 38 U/L (0-55); ALBUMIN 4.1 GM/DL (3.2-4.5); ALKALINE PHOSPHATASE 65 U/L (40-136); BILIRUBIN,TOTAL 0.6 MG/DL (0.1-1.0); BUN/CREATININE RATIO 17; CARBON DIOXIDE 28 MMOL/L (21-32); CHLORIDE 102 MMOL/L (98-107); GFR ESTIMATED > 60; GLUCOSE 102 MG/DL (70-105); MAGNESIUM 2.5 MG/DL (1.6-2.4); POTASSIUM 3.5 MMOL/L (3.6-5.0); SODIUM 141 MMOL/L (135-145); TOTAL PROTEIN 6.9 GM/DL (6.4-8.2)
[2020-07-03 13:06] LABS: HEMATOCRIT 38 % (40-54); HEMOGLOBIN 13.2 g/dL (13.3-17.7); MEAN CORPUSCULAR HEMOGLOBIN 31 pg (25-34); MEAN CORPUSCULAR HGB CONC 35 g/dL (32-36); MEAN CORPUSCULAR VOLUME 89 fL (80-99); MEAN PLATELET VOLUME 9.9 fL (9.0-12.2); PLATELET COUNT 219 10^3/uL (130-400); WHITE BLOOD COUNT 5.3 10^3/uL (4.3-11.0)
[2020-07-03 13:25] LABS: BUN/CREATININE RATIO 16; CALCIUM 9.9 MG/DL (8.5-10.1); CARBON DIOXIDE 26 MMOL/L (21-32); CHLORIDE 102 MMOL/L (98-107); CREATININE SERUM 0.97 MG/DL (0.60-1.30); GFR ESTIMATED > 60; GLUCOSE 99 MG/DL (70-105); POTASSIUM 3.8 MMOL/L (3.6-5.0); SODIUM 140 MMOL/L (135-145)
[2020-07-03 13:42] LABS: BASOPHILS % (AUTO) 1 % (0-10); EOSINOPHILS # (AUTO) 0.1 10^3/uL (0.0-0.3); EOSINOPHILS % (AUTO) 1 % (0-10); LYMPHOCYTES # (AUTO) 0.6 10^3/uL (1.0-4.0); LYMPHOCYTES % (AUTO) 11 % (12-44); MONOCYTES # (AUTO) 0.5 10^3/uL (0.0-1.0); MONOCYTES % (AUTO) 9 % (0-12); NEUTROPHILS # (AUTO) 3.9 10^3/uL (1.8-7.8); NEUTROPHILS % (AUTO) 78 % (42-75)
[2020-07-10 10:13] LABS: BASOPHILS % (AUTO) 1 % (0-10); EOSINOPHILS # (AUTO) 0.1 10^3/uL (0.0-0.3); EOSINOPHILS % (AUTO) 2 % (0-10); HEMATOCRIT 37 % (40-54); HEMOGLOBIN 12.8 g/dL (13.3-17.7); LYMPHOCYTES # (AUTO) 0.4 10^3/uL (1.0-4.0); LYMPHOCYTES % (AUTO) 10 % (12-44); MEAN CORPUSCULAR HEMOGLOBIN 32 pg (25-34); MEAN CORPUSCULAR HGB CONC 35 g/dL (32-36); MEAN CORPUSCULAR VOLUME 91 fL (80-99); MEAN PLATELET VOLUME 10.3 fL (9.0-12.2); MONOCYTES # (AUTO) 0.3 10^3/uL (0.0-1.0); MONOCYTES % (AUTO) 9 % (0-12); NEUTROPHILS # (AUTO) 2.9 10^3/uL (1.8-7.8); NEUTROPHILS % (AUTO) 79 % (42-75); PLATELET COUNT 148 10^3/uL (130-400); WHITE BLOOD COUNT 3.7 10^3/uL (4.3-11.0)
[2020-07-10 10:33] LABS: ALANINE AMINOTRANSFERASE 51 U/L (0-55); ALBUMIN 4.1 GM/DL (3.2-4.5); ALKALINE PHOSPHATASE 56 U/L (40-136); BILIRUBIN,TOTAL 0.7 MG/DL (0.1-1.0); BUN/CREATININE RATIO 10; CALCIUM 9.4 MG/DL (8.5-10.1); CARBON DIOXIDE 26 MMOL/L (21-32); CHLORIDE 104 MMOL/L (98-107); CREATININE SERUM 0.99 MG/DL (0.60-1.30); GFR ESTIMATED > 60; GLUCOSE 126 MG/DL (70-105); POTASSIUM 3.5 MMOL/L (3.6-5.0); SODIUM 140 MMOL/L (135-145); TOTAL PROTEIN 6.5 GM/DL (6.4-8.2)
[2020-07-18 10:03] LABS: BASOPHILS % (AUTO) 1 % (0-10); EOSINOPHILS % (AUTO) 2 % (0-10); HEMATOCRIT 35 % (40-54); HEMOGLOBIN 12.1 g/dL (13.3-17.7); LYMPHOCYTES # (AUTO) 0.2 10^3/uL (1.0-4.0); LYMPHOCYTES % (AUTO) 12 % (12-44); MEAN CORPUSCULAR HEMOGLOBIN 32 pg (25-34); MEAN CORPUSCULAR HGB CONC 35 g/dL (32-36); MEAN CORPUSCULAR VOLUME 91 fL (80-99); MEAN PLATELET VOLUME 9.6 fL (9.0-12.2); MONOCYTES # (AUTO) 0.3 10^3/uL (0.0-1.0); MONOCYTES % (AUTO) 14 % (0-12); NEUTROPHILS # (AUTO) 1.5 10^3/uL (1.8-7.8); NEUTROPHILS % (AUTO) 73 % (42-75); PLATELET COUNT 102 10^3/uL (130-400)
[2020-07-18 10:25] LABS: ALANINE AMINOTRANSFERASE 48 U/L (0-55); ALKALINE PHOSPHATASE 57 U/L (40-136); BUN/CREATININE RATIO 16; CARBON DIOXIDE 26 MMOL/L (21-32); CHLORIDE 103 MMOL/L (98-107); CREATININE SERUM 0.87 MG/DL (0.60-1.30); GFR ESTIMATED > 60; GLUCOSE 95 MG/DL (70-105); MAGNESIUM 2.3 MG/DL (1.6-2.4); POTASSIUM 3.7 MMOL/L (3.6-5.0); SODIUM 140 MMOL/L (135-145); TOTAL PROTEIN 6.5 GM/DL (6.4-8.2)
[2020-07-24 13:54] LABS: BASOPHILS % (AUTO) 1 % (0-10); EOSINOPHILS % (AUTO) 1 % (0-10); HEMATOCRIT 32 % (40-54); HEMOGLOBIN 11.5 g/dL (13.3-17.7); LYMPHOCYTES # (AUTO) 0.2 X 10^3 (1.0-4.0); LYMPHOCYTES % (AUTO) 15 % (12-44); MEAN CORPUSCULAR HEMOGLOBIN 33 pg (25-34); MEAN CORPUSCULAR HGB CONC 36 g/dL (32-36); MEAN CORPUSCULAR VOLUME 90 fL (80-99); MEAN PLATELET VOLUME 9.6 fL (9.0-12.2); MONOCYTES # (AUTO) 0.2 X 10^3 (0.0-1.0); MONOCYTES % (AUTO) 13 % (0-12); NEUTROPHILS % (AUTO) 69 % (42-75); PLATELET COUNT 142 10^3/uL (130-400); WHITE BLOOD COUNT 1.5 10^3/uL (4.3-11.0)
[2020-07-24 14:00] LABS: BUN/CREATININE RATIO 16; CALCIUM 9.3 MG/DL (8.5-10.1); CARBON DIOXIDE 27 MMOL/L (21-32); CHLORIDE 101 MMOL/L (98-107); CREATININE SERUM 0.86 MG/DL (0.60-1.30); GFR ESTIMATED > 60; GLUCOSE 138 MG/DL (70-105); POTASSIUM 3.2 MMOL/L (3.6-5.0); SODIUM 140 MMOL/L (135-145)
[2020-07-31 13:38] LABS: BASOPHILS % (AUTO) 1 % (0-10); EOSINOPHILS % (AUTO) 1 % (0-10); HEMATOCRIT 32 % (40-54); HEMOGLOBIN 11.4 g/dL (13.3-17.7); LYMPHOCYTES # (AUTO) 0.3 10^3/uL (1.0-4.0); LYMPHOCYTES % (AUTO) 16 % (12-44); MEAN CORPUSCULAR HEMOGLOBIN 33 pg (25-34); MEAN CORPUSCULAR HGB CONC 36 g/dL (32-36); MEAN CORPUSCULAR VOLUME 93 fL (80-99); MEAN PLATELET VOLUME 9.7 fL (9.0-12.2); MONOCYTES # (AUTO) 0.3 10^3/uL (0.0-1.0); MONOCYTES % (AUTO) 15 % (0-12); NEUTROPHILS # (AUTO) 1.2 10^3/uL (1.8-7.8); NEUTROPHILS % (AUTO) 67 % (42-75); PLATELET COUNT 156 10^3/uL (130-400); WHITE BLOOD COUNT 1.7 10^3/uL (4.3-11.0)
[2020-07-31 13:58] LABS: ALANINE AMINOTRANSFERASE 31 U/L (0-55); ALBUMIN 4.1 GM/DL (3.2-4.5); ALKALINE PHOSPHATASE 61 U/L (40-136); BILIRUBIN,TOTAL 0.8 MG/DL (0.1-1.0); BUN/CREATININE RATIO 13; CALCIUM 9.7 MG/DL (8.5-10.1); CARBON DIOXIDE 29 MMOL/L (21-32); CHLORIDE 101 MMOL/L (98-107); CREATININE SERUM 0.95 MG/DL (0.60-1.30); GFR ESTIMATED > 60; GLUCOSE 156 MG/DL (70-105); MAGNESIUM 2.2 MG/DL (1.6-2.4); POTASSIUM 3.9 MMOL/L (3.6-5.0); SODIUM 140 MMOL/L (135-145); TOTAL PROTEIN 6.5 GM/DL (6.4-8.2)
[~2020-08-11] VITALS: Ht 190.5 cm; Wt 106.6 kg
[~2020-08-11 13:00] MED LIST changes: +ACHD5005 PO; +CISplatin 70 MG, MANNITOL 25% INJ (CANCER CTR) 12.5 GM, MAGNESIUM SULFATE (CANCER CTR) ... IV SCH; +FOSAPREPITANT (CANCER CENTER) 150 MG in NS (IVPB) CANCER CENTER ONLY 150 ML IV SCH; +NS IV 1000 ML (CANCER CTR) 1,000 ML ONE; +NS IV 1000 ML (CANCER CTR) IV SCH; +ONDANSETRON 8 MG, DEXAMETHASONE 4 MG/NS 50 ML IVPB (Cancer Ctr) IV ONE
[2020-08-15 15:52] LABS: BASOPHILS % (AUTO) 1 % (0-10); EOSINOPHILS # (AUTO) 0.1 10^3/uL (0.0-0.3); EOSINOPHILS % (AUTO) 2 % (0-10); HEMATOCRIT 30 % (40-54); HEMOGLOBIN 10.3 g/dL (13.3-17.7); LYMPHOCYTES # (AUTO) 0.4 10^3/uL (1.0-4.0); LYMPHOCYTES % (AUTO) 14 % (12-44); MEAN CORPUSCULAR HEMOGLOBIN 34 pg (25-34); MEAN CORPUSCULAR HGB CONC 34 g/dL (32-36); MEAN CORPUSCULAR VOLUME 101 fL (80-99); MEAN PLATELET VOLUME 9.9 fL (9.0-12.2); MONOCYTES # (AUTO) 0.5 10^3/uL (0.0-1.0); MONOCYTES % (AUTO) 16 % (0-12); NEUTROPHILS # (AUTO) 1.9 10^3/uL (1.8-7.8); NEUTROPHILS % (AUTO) 66 % (42-75); PLATELET COUNT 177 10^3/uL (130-400); WHITE BLOOD COUNT 2.8 10^3/uL (4.3-11.0)
[2020-08-15 16:00] LABS: BUN/CREATININE RATIO 16; CALCIUM 9.4 MG/DL (8.5-10.1); CARBON DIOXIDE 28 MMOL/L (21-32); CHLORIDE 99 MMOL/L (98-107); CREATININE SERUM 0.85 MG/DL (0.60-1.30); GFR ESTIMATED > 60; GLUCOSE 97 MG/DL (70-105); POTASSIUM 3.8 MMOL/L (3.6-5.0); SODIUM 137 MMOL/L (135-145)
== END 2020-08-14 | disposition home or self-care (01) ==
LOC: ONC 13:00
PROVIDERS: ATTEND Internal Medicine Hematology & Oncology
DX: C01 Malignant neoplasm of base of tongue (principal); C77.0 Secondary and unspecified malignant neoplasm of lymph nodes of head, face and neck
CPT/HCPCS: 36591; 77300; 77301; 77334; 77336; 77338; 77386; 80048; 80053; 83735; 84443; 85025; 85027; 96360; 96361; 96367; 96374; 96375; 96413; 99204; 99213; 99214

== ENCOUNTER → 2020-08-30 | Outpatient (CLI) | payer BC ==
[~2020-08-30] MED LIST changes: -CISplatin 70 MG, MANNITOL 25% INJ (CANCER CTR) 12.5 GM, MAGNESIUM SULFATE (CANCER CTR) ... IV SCH; -FOSAPREPITANT (CANCER CENTER) 150 MG in NS (IVPB) CANCER CENTER ONLY 150 ML IV SCH; +HOLD METFORMIN - RECEIVED CONTRAST 20 ML VIAL IV SCH; +IOHEXOL 350 MG/ML 100 ML (OMNIPAQUE 350) VIAL IV ONE; +NS 100 ML (IVPB) BAG IV ONE; -NS IV 1000 ML (CANCER CTR) 1,000 ML ONE; -NS IV 1000 ML (CANCER CTR) IV SCH; -ONDANSETRON 8 MG, DEXAMETHASONE 4 MG/NS 50 ML IVPB (Cancer Ctr) IV ONE
--- NOTE | 2020-08-30 14:12 | Diagnostic Imaging Report ---
EXAMINATION: CT neck and chest with intravenous contrast. TECHNIQUE: Multiple contiguous axial images were obtained through the neck and chest after the uneventful administration of intravenous contrast. All CT scans use one or more of the following dose optimizing techniques: automated exposure control, MA and/or KvP adjustment based on patient size and exam type or iterative reconstruction. HISTORY: Squamous cell carcinoma of the tongue. COMPARISON: 04/25/2020 FINDINGS: Neck CT: Lymphadenopathy in the neck is improved. Left level III lymph node measures 1.6 x 1.7 cm, previously 2.5 x 2.4 cm. A right level III lymph node previously measured 17 mm and has resolved. A left level II lymph node measures 11 mm, previously 18 mm. The base of tongue mass is markedly decreased in size with irregularity at the base of tongue and vallecula but no measurable tumor is seen. A right neck nodule measuring 1.6 x 1.8 cm is unchanged and likely represents a thyroid nodule rather than a lymph node. The muscles of the neck are normal. Vessels of the neck demonstrate normal course and caliber. Fascial planes are preserved and the deep spaces of the neck are normal. The visualized airway is widely patent. The base of the skull and the temporal bones are normal. Limited views of the brain including the cerebellum and brainstem are normal. The limited view of the [place] is unremarkable. The visualized portions of the orbits are normal. The spinal canal is normal in caliber. Intervertebral disk heights are normal. Neural foramina are normal. Chest CT: There is no edema or pneumonia. No pleural effusion. No pneumothorax. No suspicious nodules. There is no axillary or supraclavicular lymphadenopathy. There is no mediastinal lymphadenopathy. Heart size is normal. There are no coronary artery calcifications. No pericardial effusion. Aorta is normal in caliber. Limited views of the upper abdomen show cysts in the liver and absent gallbladder. A percutaneous gastrostomy tube is present. There are no suspicious osseous lesions. IMPRESSION: 1. Significant improvement in size of base of tongue mass and cervical lymphadenopathy. 2. No metastatic disease in the chest. Dictated by: Dictated on workstation # [id number]
== END ==
LOC: RAD 10:16
PROVIDERS: ATTEND Internal Medicine Hematology & Oncology
DX: C01 Malignant neoplasm of base of tongue (principal); C77.0 Secondary and unspecified malignant neoplasm of lymph nodes of head, face and neck; R59.0 Localized enlarged lymph nodes
CPT/HCPCS: 70491; 71260

== ENCOUNTER → 2020-10-27 | Outpatient (CLI) | payer BC ==
[~2020-10-27] MED LIST changes: +CATHETER FLUSH 10 ML SYR IV PRN
--- NOTE | 2020-10-27 11:05 | Diagnostic Imaging Report ---
EXAMINATION: CT neck and chest with intravenous contrast. TECHNIQUE: Multiple contiguous axial images were obtained through the neck and chest after the uneventful administration of intravenous contrast. All CT scans use one or more of the following dose optimizing techniques: automated exposure control, MA and/or KvP adjustment based on patient size and exam type or iterative reconstruction. HISTORY: History of squamous cell carcinoma of the tongue. COMPARISON: 08/30/2020. 05/16/2020. 04/25/2020. FINDINGS: Neck CT: There is mild mucosal irregularity at the base of the tongue with subtle asymmetric prominence of the right base of tongue relative to the left. There is subtle increased enhancement with central hypoattenuation in the right base of the tongue measuring 1.3 x 0.8 cm. This appears decreased in size compared to the prior exam. There is decrease in size in the centrally necrotic lymph node in the left level 3 station measuring 1.4 x 1.2 cm, previously measuring 1.7 x 1.6 cm. Similar-appearing lymph node in the left level 2 station is also decreased in size measuring 1.0 x 0.9 cm. No new pathologically enlarged lymphadenopathy is seen in the neck. No new masses seen within the airway. No prevertebral or retropharyngeal fluid collections. The vascular structures of the neck are patent. The bilateral parotid and submandibular glands have a normal appearance. Thyroid nodules again seen extending from the right lobe of the thyroid measuring 1.3 x 1.4 cm. The cervical spine demonstrates no acute fracture or dislocation. The craniocervical junction is intact. The included intracranial contents demonstrate no acute abnormalities. A small amount retained secretions are seen in the right maxillary sinus. The mastoid air cells are clear. The globes and orbits are symmetric and unremarkable. Chest CT: The heart size is within normal limits. No pericardial effusion is present. The thoracic aorta has a normal appearance without aneurysm or dissection. A right port is visualized with the tip in the cavoatrial juncture. There is no mediastinal, hilar, or axillary lymphadenopathy. Stable benign-appearing lymph nodes are seen in the mid right lung measuring up to 0.4 cm. No new suspicious pulmonary nodules are seen. There are no focal areas of consolidation. No central endobronchial obstructing lesions are identified. There is no pleural effusion or pneumothorax. The osseous structures demonstrate no acute abnormalities. Limited views of the upper abdominal structures demonstrate no acute abnormalities. Stable benign-appearing cysts or hemangiomas are seen in the liver. Both adrenal glands are unremarkable. IMPRESSION: 1. Continued decrease in size in the subtle asymmetric prominence of the right base of tongue, representing treatment response. Additionally there has been interval decrease in size in central necrotic left-sided cervical lymph nodes. No new mass or new pathologically enlarged lymphadenopathy seen in the neck. Recommend continued follow-up as indicated. 2. No evidence of metastatic disease in the chest. Stable benign-appearing nodules are noted in the right midlung. 3. Stable exophytic nodule in the right lobe of the thyroid. Dictated by: Dictated on workstation # [id number]
== END ==
LOC: RAD 09:45
PROVIDERS: ATTEND Internal Medicine Hematology & Oncology
DX: C01 Malignant neoplasm of base of tongue (principal); C77.0 Secondary and unspecified malignant neoplasm of lymph nodes of head, face and neck; E04.1 Nontoxic single thyroid nodule; R91.8 Other nonspecific abnormal finding of lung field
CPT/HCPCS: 70491; 71260

== ENCOUNTER 2020-11-01 10:55 | Outpatient (RCR) | payer BC ==
[2020-08-15 15:52] LABS: BASOPHILS % (AUTO) 1 % (0-10); EOSINOPHILS # (AUTO) 0.1 10^3/uL (0.0-0.3); EOSINOPHILS % (AUTO) 2 % (0-10); HEMATOCRIT 30 % (40-54); HEMOGLOBIN 10.3 g/dL (13.3-17.7); LYMPHOCYTES # (AUTO) 0.4 10^3/uL (1.0-4.0); LYMPHOCYTES % (AUTO) 14 % (12-44); MEAN CORPUSCULAR HEMOGLOBIN 34 pg (25-34); MEAN CORPUSCULAR HGB CONC 34 g/dL (32-36); MEAN CORPUSCULAR VOLUME 101 fL (80-99); MEAN PLATELET VOLUME 9.9 fL (9.0-12.2); MONOCYTES # (AUTO) 0.5 10^3/uL (0.0-1.0); MONOCYTES % (AUTO) 16 % (0-12); NEUTROPHILS # (AUTO) 1.9 10^3/uL (1.8-7.8); NEUTROPHILS % (AUTO) 66 % (42-75); PLATELET COUNT 177 10^3/uL (130-400); WHITE BLOOD COUNT 2.8 10^3/uL (4.3-11.0)
[2020-08-15 16:00] LABS: BUN/CREATININE RATIO 16; CALCIUM 9.4 MG/DL (8.5-10.1); CARBON DIOXIDE 28 MMOL/L (21-32); CHLORIDE 99 MMOL/L (98-107); CREATININE SERUM 0.85 MG/DL (0.60-1.30); GFR ESTIMATED > 60; GLUCOSE 97 MG/DL (70-105); POTASSIUM 3.8 MMOL/L (3.6-5.0); SODIUM 137 MMOL/L (135-145)
[2020-09-08 10:59] LABS: BASOPHILS % (AUTO) 1 % (0-10); EOSINOPHILS # (AUTO) 0.2 10^3/uL (0.0-0.3); EOSINOPHILS % (AUTO) 6 % (0-10); HEMATOCRIT 34 % (40-54); HEMOGLOBIN 11.4 g/dL (13.3-17.7); LYMPHOCYTES # (AUTO) 0.4 10^3/uL (1.0-4.0); LYMPHOCYTES % (AUTO) 14 % (12-44); MEAN CORPUSCULAR HEMOGLOBIN 35 pg (25-34); MEAN CORPUSCULAR HGB CONC 34 g/dL (32-36); MEAN CORPUSCULAR VOLUME 103 fL (80-99); MEAN PLATELET VOLUME 9.8 fL (9.0-12.2); MONOCYTES # (AUTO) 0.4 10^3/uL (0.0-1.0); MONOCYTES % (AUTO) 13 % (0-12); NEUTROPHILS % (AUTO) 66 % (42-75); PLATELET COUNT 180 10^3/uL (130-400)
[2020-09-08 11:20] LABS: ALANINE AMINOTRANSFERASE 17 U/L (0-55); ALBUMIN 4.1 GM/DL (3.2-4.5); ALKALINE PHOSPHATASE 50 U/L (40-136); BILIRUBIN,TOTAL 0.8 MG/DL (0.1-1.0); BUN/CREATININE RATIO 10; CALCIUM 9.6 MG/DL (8.5-10.1); CARBON DIOXIDE 29 MMOL/L (21-32); CHLORIDE 105 MMOL/L (98-107); CREATININE SERUM 0.81 MG/DL (0.60-1.30); GFR ESTIMATED > 60; GLUCOSE 108 MG/DL (70-105); POTASSIUM 3.5 MMOL/L (3.6-5.0); SODIUM 140 MMOL/L (135-145); TOTAL PROTEIN 6.2 GM/DL (6.4-8.2)
[2020-10-27 09:16] LABS: BASOPHILS % (AUTO) 1 % (0-10); EOSINOPHILS # (AUTO) 0.1 10^3/uL (0.0-0.3); EOSINOPHILS % (AUTO) 5 % (0-10); HEMATOCRIT 37 % (40-54); HEMOGLOBIN 12.8 g/dL (13.3-17.7); LYMPHOCYTES # (AUTO) 0.4 10^3/uL (1.0-4.0); LYMPHOCYTES % (AUTO) 16 % (12-44); MEAN CORPUSCULAR HEMOGLOBIN 34 pg (25-34); MEAN CORPUSCULAR HGB CONC 35 g/dL (32-36); MEAN CORPUSCULAR VOLUME 97 fL (80-99); MEAN PLATELET VOLUME 9.6 fL (9.0-12.2); MONOCYTES # (AUTO) 0.3 10^3/uL (0.0-1.0); MONOCYTES % (AUTO) 11 % (0-12); NEUTROPHILS # (AUTO) 1.8 10^3/uL (1.8-7.8); NEUTROPHILS % (AUTO) 66 % (42-75); PLATELET COUNT 165 10^3/uL (130-400); WHITE BLOOD COUNT 2.7 10^3/uL (4.3-11.0)
[2020-10-27 09:45] LABS: ALANINE AMINOTRANSFERASE 16 U/L (0-55); ALBUMIN 4.1 GM/DL (3.2-4.5); ALKALINE PHOSPHATASE 40 U/L (40-136); BILIRUBIN,TOTAL 0.7 MG/DL (0.1-1.0); BUN/CREATININE RATIO 11; CARBON DIOXIDE 26 MMOL/L (21-32); CHLORIDE 107 MMOL/L (98-107); CREATININE SERUM 0.72 MG/DL (0.60-1.30); GFR ESTIMATED > 60; GLUCOSE 91 MG/DL (70-105); POTASSIUM 3.5 MMOL/L (3.6-5.0); SODIUM 142 MMOL/L (135-145); TOTAL PROTEIN 6.1 GM/DL (6.4-8.2)
[~2020-11-01 10:55] MED LIST changes: -CATHETER FLUSH 10 ML SYR IV PRN; -HOLD METFORMIN - RECEIVED CONTRAST 20 ML VIAL IV SCH; -IOHEXOL 350 MG/ML 100 ML (OMNIPAQUE 350) VIAL IV ONE; -NS 100 ML (IVPB) BAG IV ONE
== END 2020-11-13 | disposition home or self-care (01) ==
LOC: ONC 10:55
PROVIDERS: ATTEND Internal Medicine Hematology & Oncology
DX: C01 Malignant neoplasm of base of tongue (principal); C77.0 Secondary and unspecified malignant neoplasm of lymph nodes of head, face and neck; K12.30 Oral mucositis (ulcerative), unspecified; I10 Essential (primary) hypertension; Z92.21 Personal history of antineoplastic chemotherapy; Z92.3 Personal history of irradiation
CPT/HCPCS: 80048; 85025; G0463; 36591; 80053; 84443; 99213

== ENCOUNTER → 2021-01-30 | Outpatient (CLI) | payer BC ==
--- NOTE | 2021-01-30 13:33 | Diagnostic Imaging Report ---
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 This study is performed for restaging and evaluate treatment response. TECHNIQUE: The serum blood glucose level at the time of injection was 72 mg/dL. The patient was administered 14.8 mCi of F-18 FDG intravenously in the right antecubital location and PET imaging was performed from the top of the skull to the mid thighs. A noncontrast CT was also performed for attenuation correction and anatomic correlation. COMPARISON: 05/16/2020. FINDINGS: There is symmetric activity throughout the brain. The previously noted hypermetabolic mass at the base of the tongue is no longer visualized. In addition, the previously noted hypermetabolic lymph nodes in the neck have largely resolved. No hypermetabolic activity within the cervical chain is seen. A small focus of uptake in the right supraclavicular region is noted with an SUV max of 3.2; however, no definite correlate on the CT is identified. A very small lymph node at this location cannot be entirely excluded. No hypermetabolic activity in the dru or mediastinum is seen. No pulmonary parenchymal hypermetabolism is identified. There is physiologic activity throughout the GI and tracts of the abdomen and pelvis. No suspicious hypermetabolism is seen. IMPRESSION: Significant response to therapy since the prior PET/CT study from 05/16/2020. The previously noted hypermetabolic mass at the base of the tongue as well as hypermetabolic cervical lymph nodes have all resolved. There is a tiny focus of hypermetabolism in the right supraclavicular region, as described above. The study is otherwise unremarkable. Dictated by: Dictated on workstation # [id number]
== END ==
LOC: RAD 08:00
PROVIDERS: ATTEND Internal Medicine Hematology & Oncology
DX: C01 Malignant neoplasm of base of tongue (principal); C77.0 Secondary and unspecified malignant neoplasm of lymph nodes of head, face and neck
CPT/HCPCS: 78815; A9552

== ENCOUNTER 2021-04-12 05:30 | Outpatient (RCR) | payer BC ==
[~2021-04-12] VITALS: Ht 182.9 cm; Wt 90.8 kg
[~2021-04-12 05:30] MED LIST changes: +LEVO50CA4 PO
== END 2021-04-13 09:43 | disposition home or self-care (01) ==
LOC: PREOP 05:30
PROVIDERS: ATTEND Surgery
DX: Z01.812 Encounter for preprocedural laboratory examination (principal); K29.70 Gastritis, unspecified, without bleeding; Z86.010 Personal history of colon polyps; Z20.822 Contact with and (suspected) exposure to COVID-19
CPT/HCPCS: 87635

== ENCOUNTER 2021-04-16 10:21 | Day surgery (SDC) | payer BC ==
[~2021-04-16] VITALS: Ht 190.5 cm; Wt 90.8 kg
[2021-04-16] MEDS ORDERED: LACTATED RINGERS 1,000 ML IV ONE (10:31)
[2021-04-16 10:35] VITALS: BP 165/79
[2021-04-16] MEDS ORDERED: LACTATED RINGERS 1,000 ML IV STA (10:38)
[2021-04-16] MEDS ORDERED: HURRICAINE EXT TUBE (BENZOCAINE) XX PRN (10:45)
--- NOTE | 2021-04-16 11:49 | Progress Note-Pre Operative ---
Pre-Operative Progress Note H&P Reviewed The H&P was reviewed, patient examined and no changes noted. Time Seen by Provider: 11:46 Date H&P Reviewed: Apr 16, 2021 Time H&P Reviewed: 11:46 Pre-Operative Diagnosis: Gastritis, hx of polyps LATA TALBOT DO Apr 16, 2021 11:49
[2021-04-16] MEDS ORDERED: PROPOFOL INJECTION 50 ML IV ONE (12:35)
[2021-04-16 13:10] VITALS: BP 142/75
[2021-04-16 13:15] VITALS: BP 146/78
--- NOTE | 2021-04-16 13:15 | Progress Note-Post Operative ---
Post-Operative Progess Note Surgeon (s)/Thermostatic Controls Supervisor (s) Surgeon LATA TALBOT DO Thermostatic Controls Supervisor: Sally Lizama, MSIII Pre-Operative Diagnosis Gastritis, hx of polyps Post-Operative Diagnosis Gastritis Hiatal Hernia Esophagitis Diverticula int hemorrhoids Procedure & Operative Findings Date of Procedure 04/16/21 Procedure Performed/Findings EGD with bx Colonoscopy PROCEDURE NOTE: After informed consent was obtained, the patient was brought to the endoscopy suite, placed in bed in left lateral decubitus position. He was administered IV sedation by the FINANCIAL PROJECT MANAGER who then monitored vitals the entire time, heart rate, blood pressure and pulse ox and the scope was inserted down the mouth through the esophagus into the stomach. On the way down, noted some mild esophagitis, took a picture, pushed into the stomach, pushed past the antrum into the duodenum. Duodenum looked good. Pulled back and did a biopsy of antrum, then retroflexed the scope, saw a small hiatal hernia, took a picture of this and then pulled the scope into the GE junction, took another picture of the hiatal hernia and then did a biopsy of the GE junction. Pushed the scope back into the stomach, suctioned all the air out of the stomach. At this point pulled the scope up the esophagus and out the mouth. Switched camera, switched gloves, went down below and started the colonoscopy. Pushed all the way into about 160 cm to get all the way to cecum. Took a picture of the appendiceal orifice and noted the ileocecal valve and then slowly withdrew the scope, insufflating to look circumferentially at the starkey. Starting in the cecum, up the ascending colon to the hepatic flexure, then down the transverse colon, splenic flexure, into the descending colon, down into the sigmoid and finally into the rectum, retroflexed in the rectal vault, saw some minimal internal hemorrhoids and took a picture of this. I also noted small diverticula during the colonoscopy. The patient tolerated the procedure and he recovered in the endoscopy suite. He will need a repeat colonoscopy in 10 years. Anesthesia Type IV sedation by FINANCIAL PROJECT MANAGER Estimated Blood Loss Estimated blood loss (mL): scant Specimens/Packing Specimens Removed antral bx body of stomach bx GE jxn bx LATA TALBOT DO Apr 16, 2021 13:15
--- NOTE | 2021-04-16 13:16 | Endoscopy Discharge Instruct ---
Endo Procedure/Findings Findings 1.: Gastritis 2.: Hiatal Hernia 3.: Diverticulosis 4.: Internal Hemorrhoids Discharge Instructions - Activity: You might feel a little sleepy until tomorrow. This is due to the medicine you received to relax you. Until tomorrow, you should: NOT drive a car, operate machinery or power tools. NOT drink any alcoholic beverages. NOT make any important decisions or sign importortant papers. Do not return to work until tomorrow, unless otherwise instructed. Resume previous activities tomorrow. Diet: Start by taking liquids. If you tolerate liquids, advance to solid food. 1.: EGD in 3 years 2.: Colonscopy in 10 years Notify Physician - If you experience excessive bleeding, unusual abdominal pain, fever, or chest pain, contact your doctor immediately. LATA TALBOT DO Apr 16, 2021 13:16
[2021-04-16 13:20] VITALS: BP 146/78
[2021-04-16 13:36] VITALS: BP 146/78
--- NOTE | 2021-04-16 13:49 | Anesthesia-General Post-Op ---
MAC Patient Condition Mental Status/LOC: Same as Preop Cardiovascular: Satisfactory Nausea/Vomiting: Absent Respiratory: Satisfactory Pain: Controlled Complications: Absent Post Op Complications Complications None Follow Up Care/Instructions Patient Instructions None needed. Anesthesiology Discharge Order Discharge Order Patient is doing well, no complaints, stable vital signs, no apparent adverse anesthesia problems. No complications reported per nursing. BAILEY SWANN CRNA Apr 16, 2021 13:49
== END 2021-04-16 13:50 | disposition home or self-care (01) ==
LOC: ENDO 10:21
PROVIDERS: ATTEND Surgery
DX: Z12.11 Encounter for screening for malignant neoplasm of colon (principal); K29.50 Unspecified chronic gastritis without bleeding; K44.9 Diaphragmatic hernia without obstruction or gangrene; K21.00 Gastro-esophageal reflux disease with esophagitis, without bleeding; K57.30 Diverticulosis of large intestine without perforation or abscess without bleeding; K64.8 Other hemorrhoids; E03.9 Hypothyroidism, unspecified; I10 Essential (primary) hypertension; Z85.810 Personal history of malignant neoplasm of tongue; Z87.891 Personal history of nicotine dependence; Z79.890 Hormone replacement therapy; Z86.010 Personal history of colon polyps; Z79.899 Other long term (current) drug therapy
CPT/HCPCS: 88305

== ENCOUNTER → 2021-04-30 | Outpatient (CLI) | payer BC ==
[~2021-04-30] MED LIST changes: +HOLD METFORMIN - RECEIVED CONTRAST 20 ML VIAL IV SCH; +IOHEXOL 350 MG/ML 100 ML (OMNIPAQUE 350) VIAL IV ONE; +NS 100 ML (IVPB) BAG IV ONE
--- NOTE | 2021-04-30 10:20 | Diagnostic Imaging Report ---
EXAMINATION: CT neck and chest with intravenous contrast. TECHNIQUE: Multiple contiguous axial images were obtained through the neck and chest after the uneventful administration of intravenous contrast. All CT scans use one or more of the following dose optimizing techniques: automated exposure control, MA and/or KvP adjustment based on patient size and exam type or iterative reconstruction. HISTORY: Squamous cell carcinoma of the base of tongue. Malignant lymph nodes in the neck. COMPARISON: PET/CT on 01/30/2021. CT neck and chest on 10/27/2020. FINDINGS: Neck CT: No measurable soft tissue mass is seen in the base of tongue. No evidence of recurrence of the previously visualized mass. No airway compromise. There is no displacement of the parapharyngeal fat planes. There is no abnormal process evident within the prevertebral or retropharyngeal space. There is no evidence of abnormal thickening of the epiglottis or aryepiglottic folds. The vocal folds appear symmetric. The parotid and submandibular glands are unremarkable. Stable nodule in the right lobe of the thyroid measuring 1.2 cm. Interval decrease in size in the left level 2 lymph node measuring 0.7 x 0.7 cm, previously measuring 1.0 x 0.9 cm. Decrease in size in a left level 3 station cervical lymph node measuring 1.0 x 0.6 cm, previously measuring 1.4 x 1.2 cm. No new lymphadenopathy is seen. The vascular structures the neck demonstrate no evidence of high-grade stenosis on this nondedicated exam. The visualized intracranial contents demonstrate no evidence of pathologic intracranial enhancement or intracranial mass effect. Visualized orbital contents are unremarkable. Retained secretions are seen in the right maxillary sinus. The mastoids and middle ears are clear. No acute osseous abnormality in the cervical spine. Chest CT: The heart size is within normal limits. No pericardial effusion is present. A right port is visualized with the tip in the cavoatrial juncture. There is no mediastinal or hilar lymphadenopathy. There are shotty lymph nodes in the axillary regions bilaterally. No discrete pathology clearly enlarged lymph node is seen in the right supraclavicular/axillary region to correlate to the previously visualized small focus of hypermetabolic activity on PET/CT. Stable small nodules in the right mid lung measuring up to 0.4 cm. No new suspicious pulmonary nodules. No evidence of pulmonary mass. Small amount of subsegmental atelectasis is seen in the left lung base. No focal consolidation. No central endobronchial obstructing lesions. There is no pleural effusion or pneumothorax. The osseous structures demonstrate no acute abnormalities. Limited views of the upper abdominal structures demonstrate no acute abnormalities. Stable hypoattenuating foci are seen in the liver, greatest in the left hepatic lobe. Both adrenal glands are unremarkable. IMPRESSION: 1. Continued improvement in the left cervical lymph nodes and base of tongue, consistent with positive treatment response. No recurrence of the mass at the base of tongue on the right. No new lymphadenopathy in the neck and chest. 2. Shotty lymph nodes in the axillary regions bilaterally. No corresponding lymphadenopathy is seen in the area of hypermetabolic activity on the prior PET/CT in the right supraclavicular/axillary region. Recommend continued attention on follow-up. 3. Stable benign nodules in the right midlung. No new pulmonary nodules. No focal consolidation. Dictated by: Dictated on workstation # [id number]
== END ==
LOC: RAD 09:45
PROVIDERS: ATTEND Internal Medicine Hematology & Oncology
DX: C77.0 Secondary and unspecified malignant neoplasm of lymph nodes of head, face and neck (principal); R91.8 Other nonspecific abnormal finding of lung field; Z85.810 Personal history of malignant neoplasm of tongue
CPT/HCPCS: 70491; 71260

== ENCOUNTER → 2021-04-30 | Outpatient (RCR) | payer BC ==
[2021-01-30 10:18] LABS: BASOPHILS # (AUTO) 0.1 10^3/uL (0.0-0.1); BASOPHILS % (AUTO) 1 % (0-10); EOSINOPHILS # (AUTO) 0.2 10^3/uL (0.0-0.3); EOSINOPHILS % (AUTO) 4 % (0-10); HEMATOCRIT 39 % (40-54); HEMOGLOBIN 13.5 g/dL (13.3-17.7); LYMPHOCYTES # (AUTO) 0.6 10^3/uL (1.0-4.0); LYMPHOCYTES % (AUTO) 17 % (12-44); MEAN CORPUSCULAR HEMOGLOBIN 33 pg (25-34); MEAN CORPUSCULAR HGB CONC 35 g/dL (32-36); MEAN CORPUSCULAR VOLUME 96 fL (80-99); MEAN PLATELET VOLUME 9.3 fL (9.0-12.2); MONOCYTES # (AUTO) 0.4 10^3/uL (0.0-1.0); MONOCYTES % (AUTO) 11 % (0-12); NEUTROPHILS # (AUTO) 2.3 10^3/uL (1.8-7.8); NEUTROPHILS % (AUTO) 66 % (42-75); PLATELET COUNT 171 10^3/uL (130-400); WHITE BLOOD COUNT 3.5 10^3/uL (4.3-11.0)
[2021-01-30 10:54] LABS: ALBUMIN 4.3 GM/DL (3.2-4.5); BILIRUBIN,TOTAL 1.1 MG/DL (0.1-1.0); CALCIUM 9.7 MG/DL (8.5-10.1); CREATININE SERUM 0.84 MG/DL (0.60-1.30); POTASSIUM 3.8 MMOL/L (3.6-5.0); TOTAL PROTEIN 6.6 GM/DL (6.4-8.2)
[~2021-04-30] MED LIST changes: -HOLD METFORMIN - RECEIVED CONTRAST 20 ML VIAL IV SCH; -IOHEXOL 350 MG/ML 100 ML (OMNIPAQUE 350) VIAL IV ONE; -NS 100 ML (IVPB) BAG IV ONE
[2021-04-30 08:54] LABS: BASOPHILS % (AUTO) 1 % (0-10); EOSINOPHILS # (AUTO) 0.2 10^3/uL (0.0-0.3); EOSINOPHILS % (AUTO) 4 % (0-10); HEMATOCRIT 39 % (40-54); HEMOGLOBIN 13.3 g/dL (13.3-17.7); LYMPHOCYTES # (AUTO) 0.6 10^3/uL (1.0-4.0); LYMPHOCYTES % (AUTO) 16 % (12-44); MEAN CORPUSCULAR HEMOGLOBIN 32 pg (25-34); MEAN CORPUSCULAR HGB CONC 35 g/dL (32-36); MEAN CORPUSCULAR VOLUME 94 fL (80-99); MEAN PLATELET VOLUME 9.9 fL (9.0-12.2); MONOCYTES # (AUTO) 0.3 10^3/uL (0.0-1.0); MONOCYTES % (AUTO) 9 % (0-12); NEUTROPHILS # (AUTO) 2.6 10^3/uL (1.8-7.8); NEUTROPHILS % (AUTO) 70 % (42-75); PLATELET COUNT 167 10^3/uL (130-400); WHITE BLOOD COUNT 3.7 10^3/uL (4.3-11.0)
[2021-04-30 09:16] LABS: ALBUMIN 4.3 GM/DL (3.2-4.5); BILIRUBIN,TOTAL 0.9 MG/DL (0.1-1.0); CALCIUM 9.7 MG/DL (8.5-10.1); CREATININE SERUM 0.83 MG/DL (0.60-1.30); POTASSIUM 3.6 MMOL/L (3.6-5.0); TOTAL PROTEIN 6.7 GM/DL (6.4-8.2)
== END | disposition home or self-care (01) ==
LOC: ONC 01-30 10:06
PROVIDERS: ATTEND Internal Medicine Hematology & Oncology
DX: Z45.2 Encounter for adjustment and management of vascular access device (principal); C01 Malignant neoplasm of base of tongue; C77.0 Secondary and unspecified malignant neoplasm of lymph nodes of head, face and neck; K12.30 Oral mucositis (ulcerative), unspecified; I10 Essential (primary) hypertension; Z92.21 Personal history of antineoplastic chemotherapy; Z92.3 Personal history of irradiation
CPT/HCPCS: 36591; 80053; 84443; 85025; 99213

== ENCOUNTER 2021-05-10 09:21 | Outpatient (RCR) | payer BC | END 2021-06-04 | disposition home or self-care (01) | LOC: ONC 09:21 | PROVIDERS: ATTEND Internal Medicine Hematology & Oncology | DX: C01 Malignant neoplasm of base of tongue (principal); C77.0 Secondary and unspecified malignant neoplasm of lymph nodes of head, face and neck; E89.0 Postprocedural hypothyroidism; I89.0 Lymphedema, not elsewhere classified; I10 Essential (primary) hypertension; Z92.21 Personal history of antineoplastic chemotherapy; Z92.3 Personal history of irradiation | CPT/HCPCS: 99213 ==

== ENCOUNTER 2021-11-15 11:29 | Outpatient (RCR) | payer BC ==
[~2021-11-15 11:29] MED LIST changes: -ASPI-789 PO; +ASPI1TAB23 PO
== END 2021-12-02 | disposition home or self-care (01) ==
LOC: ONC 11:29
PROVIDERS: ATTEND Radiology Radiation Oncology
DX: C01 Malignant neoplasm of base of tongue (principal)
CPT/HCPCS: 99213

== ENCOUNTER → 2021-12-19 | Outpatient (CLI) | payer BC ==
[~2021-12-19] VITALS: Ht 190.5 cm; Wt 96.6 kg
== END | disposition home or self-care (01) ==
LOC: PREOP 05:30
PROVIDERS: ATTEND Surgery
DX: Z01.818 Encounter for other preprocedural examination (principal); I87.2 Venous insufficiency (chronic) (peripheral)

== ENCOUNTER 2021-12-26 06:52 | Day surgery (SDC) | payer BC ==
[~2021-12-26] VITALS: Ht 190.5 cm; Wt 96.6 kg
[2021-12-26] VITALS (8 sets, daily range): BP systolic 121–158; BP diastolic 67–79
[2021-12-26] MEDS ORDERED: LACTATED RINGERS 1,000 ML IV PRN (07:15)
[2021-12-26] MEDS ORDERED: CLINDAMYCIN 600 MG/50 ML IVPB 50 ML IV ONE (07:15)
[2021-12-26] MEDS ORDERED: LIDOCAINE/EPI 2% 1:200,00 (XYLOCAINE) 20 ML VIAL ONE (07:19)
--- NOTE | 2021-12-26 08:22 | Progress Note-Pre Operative ---
Pre-Operative Progress Note Date of Available H&P: Dec 11, 2021 Date H&P Reviewed: Dec 26, 2021 Time H&P Reviewed: 08:15 History & Physical: H&P Reviewed, Patient Examed, No changes noted Pre-Operative Diagnosis: Venous insufficiency LATA TALBOT DO Dec 26, 2021 08:22
[2021-12-26] MEDS ORDERED: PROPOFOL INJECTION 50 ML IV ONE (08:35)
[2021-12-26] MEDS ORDERED: MIDAZOLAM 2 MG/2 ML (VERSED) VIAL ONE (08:35)
--- NOTE | 2021-12-26 09:40 | Progress Note-Post Operative ---
Post-Operative Progess Note Surgeon (s)/Associate Financial Representative (s) Surgeon LATA TALBOT DO Associate Financial Representative: DALILA Hinojosa Pre-Operative Diagnosis Venous insufficiency Post-Operative Diagnosis same Procedure & Operative Findings Date of Procedure 12/26/21 Procedure Performed/Findings PROCEDURE: Removal of port COMPLICATIONS: None. INDICATIONS: The patient is a 66 year-old male who had a port previously placed. Patient is ok to have port removed. The patient was explained risk and benefits of the procedure and wished to proceed with procedure. Consent was signed on the chart. PROCEDURE: The patient was taken to the operating suite and was prepped and draped in sterile fashion. A surgical pause was performed. Local anesthetic was infiltrated to the area around the port. A # 15 blade scalpel was used to make an incision. Cautery was used to dissect down to the port which was then grasped and then dissected around. The catheter was removed in its entirety. The port was then able to be dissected out of the pocket and elevated. The wound was then irrigated with copious amounts of irrigation. Hemostasis had been achieved. The subcutaneous tissues were then reapproximated using 3-0 Vicryl. Skin was then closed using 4-0 Vicryl in a running fashion. The area was then washed and dried and Skin Affix placed over the incision. The patient tolerated the procedure well without complication and was taken to recovery room in stable condition. Anesthesia Type IV sedation by Anesthesia Estimated Blood Loss Estimated blood loss (mL): scant Specimens/Packing Specimens Removed sulema-cath, not sent to LATA Patel DO Dec 26, 2021 09:40
--- NOTE | 2021-12-26 09:41 | Discharge Inst-Surgical ---
Discharge Inst-Surgical Depart Medication/Instructions New, Converted or Re-Newed RX: Other (use home meds) Patient Instructions Follow up Appt: Make appointment for 1 week. [phone] Instructions: No lifting greater than 20 pounds. No strenuous activity. May shower in 24 hours, no tub bath or soaking. Use incentive spirometer at home as directed. No Smoking Skin/Wound Care: May remove bandages in am. You need to leave the Dermabond on incision it will fall off on it's own. Symptoms to Report: Appetite Changes, Extremity Discoloration, Numbness/Tingling, Swelling Increased, Bleeding Excessive, Eyesight Changes, Pain Increased, Urine Color Change, Constipation(Persistent), Fever over 101 degree F, Pain/Pressure in chest, Urinating Difficulty, Cough Up/Vomit Blood, Heart Beat Irreg/Pounding, Pain/Pressure in jaw, Cramps in feet or legs, Lightheadedness, Pain/Pressure in shoulder, Diarrhea(Persistent), Memory Changes Suddenly, Questions/Concerns, Weight gain consecutive days, Dizziness/Fainting, Nausea/Vomiting, Shortness of Breath, Weight gain over 2 pounds If questions or concerns contact your physician Or seek help at emergency department. Activity Activity as Tolerated: No Activity Instructions: Avoid Stress to Incision Driving Instructions: You May Drive Diet Discharge Diet: No Restrictions Diet After 24 Hours: Clear Liquid if Nauseous If Any Problems/Questions/Issu: Contact Your Physician, Go to Emergency Room Skin/Wound Care Infection Signs and Symptoms: Increased Redness, Foul Odor of Wound, Increased Drainage, Skin Itchy or Has a Rash, Increased Swelling, Temperature Above 101 F Bathing Instructions: Shower Ice Pack: Ice On and Off Site LATA TALBOT DO Dec 26, 2021 09:41
--- NOTE | 2021-12-26 09:59 | Anesthesia-General Post-Op ---
MAC Patient Condition Mental Status/LOC: Same as Preop Cardiovascular: Satisfactory Nausea/Vomiting: Absent Respiratory: Satisfactory Pain: Controlled Complications: Absent Post Op Complications Complications None Follow Up Care/Instructions Patient Instructions None needed. Anesthesiology Discharge Order Discharge Order Patient is doing well in PACU, no complaints, stable vital signs, no apparent adverse anesthesia problems. No complications reported per nursing. GIANNI CULLEN DO Dec 26, 2021 09:59
[2021-12-26] MEDS ORDERED: ONDANSETRON 4 MG/2 ML (SDV) Z0FRAN IVP PRN (10:00)
[2021-12-26] MEDS ORDERED: morphine INJ 10 MG/ML 1ML (SYR OR VIAL) IVP ONE (10:00)
== END 2021-12-26 10:58 | disposition home or self-care (01) ==
LOC: SDC 06:52
PROVIDERS: ATTEND Surgery
DX: I87.2 Venous insufficiency (chronic) (peripheral) (principal); Z28.310 Unvaccinated for COVID-19; Z88.1 Allergy status to other antibiotic agents; Z87.891 Personal history of nicotine dependence; Z28.20 Immunization not carried out because of patient decision for unspecified reason; Z85.810 Personal history of malignant neoplasm of tongue
CPT/HCPCS: 87081